=== PATIENT | male | born 1960 | race Caucasian/White ===

== ENCOUNTER 2019-01-16 10:04 | Emergency (ER) | payer OTHER, SELFPAY ==
[2019-01-16 10:08] VITALS: BP 128/87; PULSE 53; RESP 15; TEMP 36.7; O2SAT 99
--- NOTE | 2019-01-16 10:31 | ED.GENADUL_ITS ---
Discharge Plan Disposition Patient Disposition: HOME Condition: Stable Discharge Details Chief Complaint: Orthopedic Clinical Impression: Biceps tendon tear Primary Care Provider: None,None ED Provider: Martínez Roche Home Meds and New Rx's Prescriptions: Continued esomeprazole magnesium [Nexium] 40 MG capsule,delayed release(DR/EC) 40 mg PO DAILY@0730 Qty: 30 RF: 0 acetaminophen [Tylenol] 325 MG tablet 650 mg PO Q6H PRN PRNQty: 30 RF: 0 Discharge Instructions Instructions: Tendon Rupture (ED) Additional Instructions: Please continue to use [id number] pain medication, apply ice, and keep splint on. Call orthopedic office tomorrow for arrangement of follow-up appointment as directed by their office. Return to the emergency department for any new or worsening symptoms or further concerns you may have. Stand Alone Forms: Work Release Referrals: Reynaldo Cedeño MD [ [facility] STAFF PHYSICIAN] - 1 week (Call the office for arrangement of follow-up appointment) Discharge Data Discharge Date/Time-TO BE ENTERED AT DEPARTURE: 01/16/19 12:06 Medical Decision Making Patient presenting to the emergency department for chief complaint of right upper arm pain. Patient states that this happened this morning while attempting to lift a mattress into the back of the vehicle and he felt a pop and pain to his right elbow. Patient is right arm dominant. Physical exam shows significant weakness with supination of the right upper forearm. Plan to do radiological imaging Review of radiological imaging and speaking with radiologist shows no acute fracture or findings. Concern for distal tear of the biceps tendon. I do not feel that this is a complete tear as the bicep otherwise appears normal beyond the significant weakness noted. Patient placed up on orthopedic list for follow-up. Patient stated that acetaminophen was appropriate for controlling his pain and patient placed in sling. After discussion of diagnosis and plan of care patient has no further needs, questions, or concerns and states clear understanding to return to the emergency department for any worsening symptoms. HPI General Mode of arrival: ambulatory . Date/Time Provider Initiated Documentation: 01/16/19 10:17 . Limitations to Documentation: no limitations . Information obtained by: patient . History of Present Illness 58 year old M presents to the emergency department with the chief complaint of right elbow injury, described as moderate, and is localized to the right and upper extremity. Patient started experiencing this hour(s) (1) and it has been constant. Movement worsens symptoms . Patient notes no other symptoms.. Patient did receive the following treatments prior to arrival, none Related Data Home Medications Medication Instructions Recorded Confirmed acetaminophen [Tylenol] 650 mg PO Q6H PRN PRN #30 tab 05/05/18 01/16/19 esomeprazole magnesium [Nexium] 40 mg PO DAILY@0730 #30 capcr 05/29/18 01/16/19 Previous Rx's Medication Instructions Recorded acetaminophen [Tylenol] 650 mg PO Q6H PRN PRN #30 tab 05/05/18 esomeprazole magnesium [Nexium] 40 mg PO DAILY@0730 #30 capcr 05/29/18 Allergies Allergy/AdvReac Type Severity Reaction Status Date / Time venom-honey bee Allergy Severe Anaphylaxsi Unverified 01/16/19 10:13 [bee venom (honey bee)] s General Stated Complaint: Orthopedic CANDICE: 4 Review of Systems Cardiovascular Denies syncope Musculoskeletal Reports as per HPI, Reports myalgias, Reports arthralgias, Denies numbness and Denies tingling Integumentary/Breasts Denies rash, Denies sores and Denies wounds Neurologic Denies syncope, Denies numbness and Denies tingling PFSH Medical History Garza's esophagus determined by biopsy Surgical History Appendectomy (05/04/18) Colonoscopy - IV Sedation (12/24/13) EGD - IV Sedation (12/24/13) EGD - MAC (05/29/18) Family History Maternal Aunt Colon cancer Social History household members: spouse housing: house Smoking and Tabacco status: Never alcohol intake: current alcohol intake frequency: a few times a month substance use type: does not use Exam Const General: cooperative and no acute distress Orientation: alert, awake and oriented x3 Resp Effort & Inspection: normal respiratory effort and able to speak in complete sentences Cardio Rate: regular rate Rhythm: regular rhythm Extrem Right upper extremity: shoulder/upper arm Details: normal to inspection and axillary nerve sensory function normal; no tenderness and no deformity, elbow/forearm Details: abnormal ROM Details: pain with active ROM during Details: with supination and with range as follows (Significant weakness with supination), wrist Details: normal to inspection, normal ROM and radial pulse present and hand Details: normal to inspection, neuromotor exam normal, neurosensory exam normal, tendon exam normal and normal ROM of fingers Course Vital Signs Temperature 36.7 C 01/16/19 10:08 Pulse 53 L 01/16/19 10:08 Respiratory Rate 15 01/16/19 10:08 Blood Pressure 128/87 01/16/19 10:08 Pulse Oximetry 99 01/16/19 10:08 Temperature 36.7 C 01/16/19 10:08 Temperature Source Tympanic 01/16/19 10:08 Pulse 53 L 01/16/19 10:08 Respiratory Rate 15 01/16/19 10:08 Respiratory Effort Non-Labored 01/16/19 10:12 Blood Pressure 128/87 01/16/19 10:08 Blood Pressure Position Sitting 01/16/19 10:08 Pulse Oximetry 99 01/16/19 10:08 Pain Level 5 01/16/19 10:15
--- NOTE | 2019-01-16 10:50 | DI.RAD_ITS ---
SYMPTOMS/DIAGNOSIS: PAIN RIGHT ELBOW: No fracture or joint effusion is seen. There are no significant degenerative changes. IMPRESSION: Negative right elbow.
== END 2019-01-16 12:06 | disposition home or self-care (01) ==
PROVIDERS: Emergency Provider Nurse Practitioner Family
DX: S46.111A Strain of muscle, fascia and tendon of long head of biceps, right arm, initial encounter (principal); X50.9XXA Other and unspecified overexertion or strenuous movements or postures, initial encounter
CPT/HCPCS: 99283; 73080; 99282; L3650

== ENCOUNTER 2019-02-06 01:12 | Outpatient (CLI) | payer OTHER, SELFPAY ==
--- NOTE | 2019-02-06 09:55 | DI.MRI_ITS ---
SYMPTOMS/DIAGNOSIS: RT RUPTURED DISTAL BICEPS RIGHT ELBOW MRI: MRI examination of the elbow was performed in a patient with clinically apparent distal biceps tendon rupture. No bony signal abnormality seen. There is an apparent subtotal tear of the biceps tendon at the radial tuberosity attachment without significant retraction and a few visible intact fibers are present. No other tendinous or ligamentous injury identified. CONCLUSION: Findings consistent with subtotal non or minimally retracted rupture of the distal biceps tendon as clinically suspected.
== END 2019-02-06 01:32 ==
PROVIDERS: Visit Provider Orthopaedic Surgery
DX: S46.211A Strain of muscle, fascia and tendon of other parts of biceps, right arm, initial encounter (principal)
CPT/HCPCS: 73221

== ENCOUNTER 2019-02-19 07:27 | Day surgery (SDC) | payer OTHER, SELFPAY ==
[2019-02-19] VITALS (7 sets, daily range): BP systolic 134–147; BP diastolic 86–103; PULSE 74–88; RESP 12–18; TEMP 36.3–36.9; O2SAT 95–100
[2019-02-19] MEDS: Lactated Ringers 1,000 ML 80 ML IV (08:10)
[2019-02-19] MEDS: ceFAZolin 2 GM/50 ML BAG IVPB (10:06)
--- NOTE | 2019-02-19 11:03 | W.PM.DSUDISC ---
Discharge Plan Disposition Patient Disposition: HOME Condition: Good Discharge Details Reason For Visit: RUPTURE DISTAL BICEPS (R) Attending Provider: Anmol Morales Primary Care Provider: None,None Home Meds and New Rx's Prescriptions: New ibuprofen 800 mg tablet 800 mg PO TID Qty: 30 RF: 0 hydrocodone-acetaminophen 5-325 mg tablet 1 tab PO Q6H PRN (Reason: pain) Qty: 14 RF: 0 Continued esomeprazole magnesium [Nexium] 40 MG capsule,delayed release(DR/EC) 40 mg PO DAILY@0730 Qty: 30 RF: 0 acetaminophen [Tylenol] 325 MG tablet 650 mg PO Q6H PRN PRNQty: 30 RF: 0 Discharge Instructions Additional Instructions: Sling for comfort. Take R arm out of sling and move elbow as often and as much as your discomfort allows. Discontinue sling when you can move R elbow with minimal pain. Don't attempt to lift anything more than 20 pounds with R arm. May remove dressings, shower, and get incision wet after 72 hours. Leave incision uncovered when it is dry and sealed. Follow up with in 2 weeks. Take ibuprofen 3 times/day for 10 days to decrease inflammation and swelling. Take hydrocodone if needed, for breakthru pain. Referrals: Anmol Morales MD [ [facility] STAFF PHYSICIAN] - (f/u in 2 weeks.) Equipment/Supplies: Sling Activity:: Activity as Tolerated Remove Dressings/Wound Care:: 72 hours Shower/Bathe:: 72 hours Diet:: As Tolerated Discharge Orders Discharge Orders: Discharge Order (Routine); Ordered 02/19/19 Ordered By: Anmol Morales DS: Diagnosis Discharge Diagnosis (1) Rupture of right distal biceps tendon: Status: Acute
[2019-02-19] MEDS: oxyCODONE-CR 10 MG TABCR PO (12:34)
--- NOTE | 2019-02-20 16:30 | ROE_ITS ---
DATE OF PROCEDURE: February 19, 2019 PREOPERATIVE DIAGNOSIS: Possible rupture distal biceps, right. POSTOPERATIVE DIAGNOSIS: Partial tear distal biceps, right. PROCEDURE: Exploration of distal biceps tendon, right. ANESTHESIA: General. SURGEON: Anmol Morales M.D. 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 He was thought to have a distal biceps rupture. An MRI scan was obtained and was interpreted as showing in fact a distal biceps rupture. The clinical examination, however, d id not quite fit the diagnosis of a complete rupture. Exploration of the biceps tendon was recommend ed, with repair anticipated if there was a complete tear of the distal biceps tendon. The risks and complications of the procedure were explained to the patient in detail preoperatively, as well as a p rolonged recovery time. PROCEDURE: The patient was taken to the Operating Room on 02/19/19. He was placed supine on the opera ting table and a general anesthetic was administered. A proximal tourniquet was applied to the right upper arm and the right upper extremity was prepped from fingers to tourniquet and draped free in th e usual sterile fashion. Under proximal tourniquet control, I first made a transverse incision in the antecubital fossa about three inches in length. Then I carried it down to the fascia; cauterized and tied off superficial ve ins, and I was able to expose the biceps tendon. It was in fact in place and was not retracted. I t hen extended the incision distally and on the ulnar side of the forearm I put a vessel loop around th e tendon and traced the tendon down to insertion on the radial tuberosity. There was evidence of pal e hemorrhage into the tenosynovium distally, but the biceps tendon was still attached to the greater tuberosity and was not pulled off. I was able to tension and loosen the tendon with pronation and garner pination. I did not feel that any repair was necessary. The wound was irrigated with saline solutio n and the wound margins were infiltrated with 0.5% Marcaine with an epinephrine solution. The skin a nd subcu were approximated with interrupted #4-0 Nylon sutures. Sterile dressings were applied. The patient's anesthesia was reversed without complication and he was discharged to Recovery in good con dition. The patient was discharged home from the Day Surgery Unit when fully recovered from his general anest hesia. He was given instructions to use the sling for comfort. He may take his right arm out of the sling as much and as often as discomfort allows to move his elbow. He may remove his dressings, kelsey wer and get his incision wet after 72 hours. I encouraged him to use his right arm as much as discom fort allows, but he should limit any lifting with the right arm to twenty pounds. He was given a pre scription for inflammation of ibuprofen 800 mg p.o. t.i.d. for ten days and a prescription for pain o f Hydrocodone with APAP 5/325 one tablet every 6 hours, as needed. He will follow-up with me in two weeks.
== END 2019-02-19 13:22 | disposition home or self-care (01) ==
PROVIDERS: Visit Provider Orthopaedic Surgery
PROC: (CPT 24341; principal; 2019-02-19 09:00)
DX: S46.211A Strain of muscle, fascia and tendon of other parts of biceps, right arm, initial encounter (principal); X58.XXXA Exposure to other specified factors, initial encounter; Y99.0 Civilian activity done for income or pay
CPT/HCPCS: 24341; J0690; J1100; J1885; J2250; J2405; J3010; L3650

== ENCOUNTER 2019-02-20 19:57 | Observation (INO) | payer OTHER, SELFPAY ==
[2019-02-20 20:01] VITALS: BP 125/82; PULSE 128; RESP 18; TEMP 36.6; O2SAT 94
--- NOTE | 2019-02-20 20:13 | NUR.NOTE ---
patient reported that right hand less has sensation than left, right radial pulse is not as strong as left radial pulse, existing right arm mary wrap dc'd and sesnaiton is better and pulse is stronger Nursing Note:
[2019-02-20 20:26] VITALS: TEMP 37.7
--- NOTE | 2019-02-20 20:37 | W.ED.GENAD ---
Discharge Plan Disposition Patient Disposition: [facility] INPATIENT Condition: Good Discharge Details Chief Complaint: GenMedical Admit Date/Time: 02/20/19 21:16 Admit Provider: Reynaldo Cedeño Attending Provider: Reynaldo Cedeño Primary Care Provider: Verona Noel ED Provider: Omar Craven Hospital Course Hospital Course: Patient was admitted to the hospital on 02/20/2019 for possible sepsis. Blood cultures were obtained and he was started on empiric IV antibiotics. Swelling in his right hand resolved overnight by simply having the Edwin bandage off. The wound in his right antecubital fossa from exploration of his biceps tendon was totally benign and without drainage. He was complaining of some diarrhea prior to admission. I thought he might have contracted C. difficile from his preop antibiotics on 02/19/2019. Test for C. difficile were negative. He felt better every day. He has no pain moving his right elbow. He was afebrile during the daytime on 02/21/2019. He had a fever spike at night to 38 degrees on 410. On 411 he was afebrile throughout the day. He was eating and drinking well. His surgical incision in the antecubital fossa on the right was totally benign. Blood cultures showed no growth after 48 hours. I felt he had completed his acute care goals. I thought he probably had a viral illness that caused his fever and chills. I thought the antibiotics could be stopped that he could be sent home. Discharge Instructions Instructions: Fever in Adults (GEN) Additional Instructions: May shower and get the codie wet on his right elbow. He should cover the codie with a light gauze dressing so that they do not catch on his clothing. May use his right arm as much as discomfort allows. Can take ibuprofen for any discomfort. Follow-up had originally scheduled appointment on 03/03/2019. Forms: Nursing Discharge Form Referrals: Anmol Morales MD [ [facility] STAFF PHYSICIAN] - 03/06/19 9:45 am (Has appt on 03/03/19) Discharge Data Discharge Date/Time-TO BE ENTERED AT DEPARTURE: 02/20/19 22:07 Medical Decision Making 20:45 --58-year-old male one day status post exploration of right distal biceps tendon here with fever, chills, headache, loose stool since early this afternoon. Patient is febrile and tachycardic. Right upper extremity with erythema and warmth. Concern for cellulitis. Will initiate fluid resuscitation with 1 L of normal saline. To check CBC, lactate and blood culture. -- Patient meets sepsis criteria. Plan to initiate broad spec empiric antibiotic coverage. Plan to admit. -- I spoke with Dr. Cedeño who will admit the patient. HPI General Mode of arrival: ambulatory. Date/Time Provider Initiated Documentation: 02/20/19 20:29. Limitations to Documentation: no limitations. Information obtained by: patient. HPI Narrative: 58-year-old male presents 1 day status post right distal bicep tendon exploration with chief complaint of fever. Patient notes he is felt chills today. He has associated loose stool and headache today. No neck stiffness or pain. Symptoms started around 3 PM today. Symptoms have persisted. He took ibuprofen 800 mg around 7:00 which has helped minimally. No associated cough. No dysuria. No rash. Related Data Home Medications Medication Instructions Recorded Confirmed acetaminophen [Tylenol] 650 mg PO Q6H PRN PRN #30 tab 05/05/18 02/20/19 esomeprazole magnesium [Nexium] 40 mg PO DAILY@0730 #30 capcr 05/29/18 02/20/19 hydrocodone-acetaminophen 1 tab PO Q6H PRN #14 tab 02/19/19 02/20/19 ibuprofen 800 mg PO TID #30 tab 02/19/19 02/20/19 Previous Rx's Medication Instructions Recorded acetaminophen [Tylenol] 650 mg PO Q6H PRN PRN #30 tab 05/05/18 esomeprazole magnesium [Nexium] 40 mg PO DAILY@0730 #30 capcr 05/29/18 hydrocodone-acetaminophen 1 tab PO Q6H PRN #14 tab 02/19/19 ibuprofen 800 mg PO TID #30 tab 02/19/19 Allergies Allergy/AdvReac Type Severity Reaction Status Date / Time venom-honey bee Allergy Severe Anaphylaxsi Unverified 02/20/19 20:05 [bee venom (honey bee)] s General Stated Complaint: GenMedical CANDICE: 3 Review of Systems Review of Systems All systems reviewed & are unremarkable except as noted in HPI and below PFSH Medical History Garza's esophagus determined by biopsy Surgical History Appendectomy (05/04/18) Colonoscopy - IV Sedation (12/24/13) EGD - IV Sedation (12/24/13) EGD - MAC (05/29/18) Family History Maternal Aunt Colon cancer Social History Smoking/Tobacco Use Status: Never Alcohol Intake: current Alcohol Intake frequency: a few times a week Alcohol type: beer Drug use: Never Substance use type: does not use Details: alcohol: t-1, couple beers Household members: spouse Housing: house Do you feel safe at home: Yes Do you feel safe in your relationship?: Yes Exam Const General: cooperative and no acute distress HENMT Mouth: moist mucous membranes Eyes Conjunctivae: normal conjunctivae Sclera: normal sclerae Neck Neck: no meningeal signs and supple Resp Auscultation: clear to auscultation bilaterally, no rales, no rhonchi and no wheezes Cardio Jugular venous pressure: no JVD Rate: tachycardic Rhythm: regular rhythm GI Palpation: soft, not firm, no guarding, no masses, not rigid and nontender Skin Rashes: rashes noted (erthema and warmth right upper arm mid humerus to elbow) Neuro General: alert, awake, oriented x3 and tone normal Extrem Right upper extremity: shoulder/upper arm (codie intact with no discharge from surgical wound; erythema noted) Details: tenderness and swelling (distal upper arm) and elbow/forearm Details: swelling, warmth and other (compartments soft); no crepitus Psych Appearance: grossly normal Mental Status: mental status grossly normal Course Vital Signs Temperature 36.6 C 02/20/19 20:01 Pulse 128 H 02/20/19 20:01 Respiratory Rate 18 02/20/19 20:01 Blood Pressure 125/82 02/20/19 20:01 Pulse Oximetry 94 L 02/20/19 20:01 Temperature 37.7 C H 02/20/19 20:26 Temperature Source Oral 02/20/19 20:26 Pulse 128 H 04/09/19 20:01 Respiratory Rate 18 02/20/19 20:01 Blood Pressure 125/82 02/20/19 20:01 Pulse Oximetry 94 L 02/20/19 20:01 Oxygen Delivery Method Room Air 02/20/19 20:01 Oxygen Flow Rate 0 02/20/19 20:01 Pain Level 4 02/20/19 20:01
--- NOTE | 2019-02-20 20:49 | ED.GENADUL_ITS ---
Discharge Plan Disposition Patient Disposition: [facility] INPATIENT Condition: Good Discharge Details Chief Complaint: GenMedical Admit Date/Time: 02/20/19 21:16 Admit Provider: Reynaldo Cedeño Attending Provider: Reynaldo Cedeño Primary Care Provider: Verona Noel ED Provider: Omar Craven Hospital Course Hospital Course: Patient was admitted to the hospital on 02/20/2019 for possible sepsis. Blood cultures were obtained and he was started on empiric IV antibiotics. Swelling in his right hand resolved overnight by simply having the Edwin bandage off. The wound in his right antecubital fossa from exploration of his biceps tendon was totally benign and without drainage. He was complaining of some diarrhea prior to admission. I thought he might have contracted C. difficile from his preop antibiotics on 02/19/2019. Test for C. difficile were negative. He felt better every day. He has no pain moving his right elbow. He was afebrile during the daytime on 02/21/2019. He had a fever spike at night to 38 degrees on 410. On 411 he was afebrile throughout the day. He was eating and drinking well. His surgical incision in the antecubital fossa on the right was totally benign. Blood cultures showed no growth after 48 hours. I felt he had completed his acute care goals. I thought he probably had a viral illness that caused his fever and chills. I thought the antibiotics could be stopped that he could be sent home. Discharge Instructions Instructions: Fever in Adults (GEN) Additional Instructions: May shower and get the codie wet on his right elbow. He should cover the codie with a light gauze dressing so that they do not catch on his clothing. May use his right arm as much as discomfort allows. Can take ibuprofen for any discomfort. Follow-up had originally scheduled appointment on 03/03/2019. Forms: Nursing Discharge Form Referrals: Anmol Morales MD [ [facility] STAFF PHYSICIAN] - 03/06/19 9:45 am (Has appt on 03/03/19) Discharge Data Discharge Date/Time-TO BE ENTERED AT DEPARTURE: 02/20/19 22:07 Medical Decision Making 20:45 --58-year-old male one day status post exploration of right distal biceps tendon here with fever, chills, headache, loose stool since early this afternoon. Patient is febrile and tachycardic. Right upper extremity with erythema and warmth. Concern for cellulitis. Will initiate fluid resuscitation with 1 L of normal saline. To check CBC, lactate and blood culture. -- Patient meets sepsis criteria. Plan to initiate broad spec empiric antibiotic coverage. Plan to admit. -- I spoke with Dr. Cedeño who will admit the patient. HPI General Mode of arrival: ambulatory . Date/Time Provider Initiated Documentation: 02/20/19 20:29 . Limitations to Documentation: no limitations . Information obtained by: patient . HPI Narrative: 58-year-old male presents 1 day status post right distal bicep tendon exploration with chief complaint of fever. Patient notes he is felt chills today. He has associated loose stool and headache today. No neck stiffness or pain. Symptoms started around 3 PM today. Symptoms have persisted. He took ibuprofen 800 mg around 7:00 which has helped minimally. No associated cough. No dysuria. No rash. Related Data Home Medications Medication Instructions Recorded Confirmed acetaminophen [Tylenol] 650 mg PO Q6H PRN PRN #30 tab 05/05/18 02/20/19 esomeprazole magnesium [Nexium] 40 mg PO DAILY@0730 #30 capcr 05/29/18 02/20/19 hydrocodone-acetaminophen 1 tab PO Q6H PRN #14 tab 02/19/19 02/20/19 ibuprofen 800 mg PO TID #30 tab 02/19/19 02/20/19 Previous Rx's Medication Instructions Recorded acetaminophen [Tylenol] 650 mg PO Q6H PRN PRN #30 tab 05/05/18 esomeprazole magnesium [Nexium] 40 mg PO DAILY@0730 #30 capcr 05/29/18 hydrocodone-acetaminophen 1 tab PO Q6H PRN #14 tab 02/19/19 ibuprofen 800 mg PO TID #30 tab 02/19/19 Allergies Allergy/AdvReac Type Severity Reaction Status Date / Time venom-honey bee Allergy Severe Anaphylaxsi Unverified 02/20/19 20:05 [bee venom (honey bee)] s General Stated Complaint: GenMedical CANDICE: 3 Review of Systems Review of Systems All systems reviewed & are unremarkable except as noted in HPI and below PFSH Medical History Garza's esophagus determined by biopsy Surgical History Appendectomy (05/04/18) Colonoscopy - IV Sedation (12/24/13) EGD - IV Sedation (12/24/13) EGD - MAC (05/29/18) Family History Maternal Aunt Colon cancer Social History Smoking/Tobacco Use Status: Never Alcohol Intake: current Alcohol Intake frequency: a few times a week Alcohol type: beer Drug use: Never Substance use type: does not use Details: alcohol: t-1, couple beers Household members: spouse Housing: house Do you feel safe at home: Yes Do you feel safe in your relationship?: Yes Exam Const General: cooperative and no acute distress HENMT Mouth: moist mucous membranes Eyes Conjunctivae: normal conjunctivae Sclera: normal sclerae Neck Neck: no meningeal signs and supple Resp Auscultation: clear to auscultation bilaterally, no rales, no rhonchi and no wheezes Cardio Jugular venous pressure: no JVD Rate: tachycardic Rhythm: regular rhythm GI Palpation: soft, not firm, no guarding, no masses, not rigid and nontender Skin Rashes: rashes noted (erthema and warmth right upper arm mid humerus to elbow) Neuro General: alert, awake, oriented x3 and tone normal Extrem Right upper extremity: shoulder/upper arm (codie intact with no discharge from surgical wound; erythema noted) Details: tenderness and swelling (distal upper arm) and elbow/forearm Details: swelling, warmth and other (compartments soft); no crepitus Psych Appearance: grossly normal Mental Status: mental status grossly normal Course Vital Signs Temperature 36.6 C 02/20/19 20:01 Pulse 128 H 02/20/19 20:01 Respiratory Rate 18 02/20/19 20:01 Blood Pressure 125/82 02/20/19 20:01 Pulse Oximetry 94 L 02/20/19 20:01 Temperature 37.7 C H 02/20/19 20:26 Temperature Source Oral 02/20/19 20:26 Pulse 128 H 04/09/19 20:01 Respiratory Rate 18 02/20/19 20:01 Blood Pressure 125/82 02/20/19 20:01 Pulse Oximetry 94 L 02/20/19 20:01 Oxygen Delivery Method Room Air 02/20/19 20:01 Oxygen Flow Rate 0 02/20/19 20:01 Pain Level 4 02/20/19 20:01
[2019-02-20 20:52] LABS: Abs Immature Grans 0.03 k/cumm (0.0-0.09); Absolute Basophil Count 0.02 k/cumm (0.0-0.2); Absolute Eosinophil Count 0.03 k/cumm (0.0-0.7); Absolute Monocyte Count 0.64 k/cumm (0.11-0.7); Absolute Neutrophil Count 6.94 k/cumm (1.2-6.7); Basophils % 0.2; Eosinophils % 0.4; HCT 43.9 % (40.0-50.0); HGB 15.3 g/dL (13.5-17.5); Immature Grans % 0.4; Mean Corp. HGB Concentration 34.9 g/dL (32.0-36.0); Mean Corpuscular Hemoglobin 31.2 pg (27.0-33.0); Mean Corpuscular Volume 89.6 fL (80-95); Mean Platelet Volume 10.3 fL (8.0-11.0); Monocytes % 7.9; Neutrophils % 86.1; Platelet Count 240 x1000/uL (130-400); White Blood Cell Count 8.06 k/cumm (4.4-10.8)
[2019-02-20 21:11] LABS: ALT 43 U/L (12-78); AST 21 U/L (15-37); Albumin 3.4 g/dL (3.4-5.0); Alkaline Phosphatase 70 U/L (46-116); BUN 13 mg/dL (7-18); Bilirubin, Total 1.7 mg/dL (0.2-1.0); CREATININE 1.11 mg/dL (0.70-1.30); Calcium 8.3 mg/dL (8.5-10.1); Chloride 100 mmol/L (98-107); Glucose 150 mg/dL (70-100); Potassium 3.3 mmol/L (3.5-5.1); Sodium 135 mmol/L (136-145); Total Protein 6.9 g/dL (6.4-8.2)
[2019-02-20] MEDS: PIPERACILLIN/TAZO 4.5 GM in Normal Saline 100 ML IVPB (21:19)
[2019-02-20 21:32] VITALS: BP 134/76; PULSE 95; RESP 18; TEMP 37.2; O2SAT 97
--- NOTE | 2019-02-20 21:39 | DI.RAD_ITS ---
SYMPTOM/DIAGNOSIS: RECENT ELBOW SURGERY WITH PAIN RIGHT ELBOW: Two views. No bone or joint abnormality is identified. There are surgical clips in the anterior soft tissues. No radiopaque foreign bodies are present. IMPRESSION: No acute abnormality.
[2019-02-20 21:53] LABS: C-Reactive Protein 5.05 mg/dL (0.0-0.3)
--- NOTE | 2019-02-20 22:00 | DI.VRAD_ITS ---
EXAM: XR Right Elbow, 1 or 2 Views EXAM DATE/TIME: 02/20/2019 9:14 PM CLINICAL HISTORY: 58 years old, male; Signs and symptoms; Other: Recent elbow surgery with pain; Prior surgery; Surgery date: 3-7 days post-operative; Surgery type: RT elbow surgery; Additional info: Recent elbow surgery with pain, develop fever and pain TECHNIQUE: Imaging protocol: XR Right elbow 1 or 2 views. COMPARISON: CR XR elbow RT complete 01/16/2019 10:41 AM FINDINGS: Bones/joints: Joint spaces are maintained. No appreciable elbow joint effusion. No acute fracture or dislocation. Soft tissues: Postsurgical changes of the ventral elbow. No subcutaneous emphysema. No radiopaque foreign body. IMPRESSION: No obvious acute findings. Dictated and Authenticated by: Wellington Rubi MD. Ordering:EDUARDA Jacobs MD
[2019-02-20] MEDS: VANCOMYCIN 1,500 MG in Normal Saline 250 ML 166.6666 MG IVPB (22:03)
--- NOTE | 2019-02-20 22:04 | NUR.NOTE ---
MD Cedeño examined patient. Nursing Note:
[2019-02-20 22:22] VITALS: BP 117/82; PULSE 98; RESP 16; TEMP 37.7; O2SAT 98
--- NOTE | 2019-02-20 22:55 | OCONE_ITS ---
Date of service: 02/20/19 Time of Service: 21:51 History of Present Illness Chief Complaint: Fever and Chills Narrative: Valdez is a 58-year-old who recently had surgery to his right arm. This is done yesterday by Dr. Morales. He did fine yesterday evening and then today reported shaking chills and a fever of 102 degrees. Given these findings he came into the emergency department. He denies any chest pain or shortness of breath. He denies any chest heaviness. He has had some mild swelling distal to the wrap around the elbow. He has been able to move the elbow although causes some discomfort. No numbness or tingling. No exquisite pain not controlled wi th ibuprofen and Tylenol. Consult Reason Fever and Chills Assessment and Plan (1) Fever and chills: Current visit: Yes Status: Acute Valdez is a 58-year-old who had surgery to the right arm yesterday. He developed significant fever, greater than 102 degrees, earlier today along with chills. He has no major symptoms except for the fever and chills. On admission to the emergency department he had tachycardia of 122 bpm. His lactate is elevated at 2 and his C-reactive protein is elevated at 5. His examination however is really benign. The initial presentation is concerning for infection but it would be highly unlikely that the surgical wound become infected within 24 hours. The exam of the wound is benign. Other possible differential items include deep vein thrombosis or thrombophlebitis or another etiology of infection although there is little indication based on exam and history. I offered admission for can. I think it makes sense to start some antibiotics just to be safe and follow him conservatively. Blood cultures were obtained. I will admit him for observation and start Vanco and Zosyn. 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 He is in no acute distress. He is alert and oriented x3. His eyes are anicteric. His head is normocephalic. He has normal neck and head motions. Evaluation of the right arm shows a well approximated incision over the antebrachial space. There is some very mild rubor in this area but no eligio erythema. The forearm and elbow is soft. There is some mild swelling when compared to the contralateral side but no significant edema. No emphysema subcutaneously. No significant pain to palpation throughout. Palpable radial pulse. The hand is warm well perfused. Sensation intact light touch over the median, radial, ulnar nerve. Gentle elbow range of motion is well-tolerated without significant limitation. Results Last Vital Signs Temp 37.7 C H 02/20/19 22:22 Pulse 98 H 02/20/19 22:22 Resp 16 02/20/19 22:22 BP 177/82 H 02/20/19 22:22 Pulse Ox 98 02/20/19 22:22 Labs : 02/20/19 20:44 02/20/19 20:44 Laboratory Results - last 24 hr 02/20/19 02/20/19 02/20/19 20:37 20:44 20:44 WBC RBC Hgb Hct MCV MCH MCHC RDW Plt Count MPV Immature Gran % Neutrophils % Lymphocytes % Monocytes % Eosinophils % Basophils % Absolute Neutrophils Absolute Lymphocytes Absolute Monocytes Absolute Eosinophils Absolute Basophils Sodium 135 L Potassium 3.3 L Chloride 100 Carbon Dioxide 24.0 Anion Gap 11.0 BUN 13 Creatinine 1.11 Estimated GFR/1.73 m2 >= 60.00 Glucose 150 H Lactate 2.0 H Calcium 8.3 L Total Bilirubin 1.7 H AST 21 ALT 43 Alkaline Phosphatase 70 C-Reactive Protein 5.05 H Total Protein 6.9 Albumin 3.4 02/20/19 20:44 WBC 8.06 RBC 4.90 Hgb 15.3 Hct 43.9 MCV 89.6 MCH 31.2 MCHC 34.9 RDW 13.0 Plt Count 240 MPV 10.3 Immature Gran % 0.4 Neutrophils % 86.1 Lymphocytes % 5.0 Monocytes % 7.9 Eosinophils % 0.4 Basophils % 0.2 Absolute Neutrophils 6.94 H Absolute Lymphocytes 0.40 L Absolute Monocytes 0.64 Absolute Eosinophils 0.03 Absolute Basophils 0.02 Sodium Potassium Chloride Carbon Dioxide Anion Gap BUN Creatinine Estimated GFR/1.73 m2 Glucose Lactate Calcium Total Bilirubin AST ALT Alkaline Phosphatase C-Reactive Protein Total Protein Albumin
[2019-02-20] MEDS: Potassium Chloride 10 MEQ TABCR 20 MEQ PO (23:05)
[2019-02-21] VITALS (9 sets, daily range): BP systolic 108–128; BP diastolic 63–79; PULSE 84–96; RESP 16–18; TEMP 36.6–38.2; O2SAT 94–98
[2019-02-21] MEDS: Acetaminophen 325 MG TAB 650 MG PO (00:24)
[2019-02-21] MEDS: Ibuprofen 800 MG TAB PO (03:38)
[2019-02-21] MEDS: Normal Saline Flush 10 ML SYR IVP ×5 (03:39→21:35)
[2019-02-21] MEDS: PIPERACILLIN/TAZO 3.375 GM in Normal Saline 50 ML IVPB ×4 (03:39→21:34)
[2019-02-21] MEDS: Esomeprazole 40 MG CAPCR PO (07:43)
--- NOTE | 2019-02-21 08:10 | PDOC.CMIN ---
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 Past Surgical History: Appendectomy. Colonoscopy - IV Sedation. EGD - IV Sedation. EGD - MAC PREVIOUS FUNCTIONAL STATUS/SOCIAL/FAMILY SUPPORTS:: Lamont lives at home with his and one child. He has 2 other adult children who are out of the home. 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 CURRENT FUNCTIONAL STATUS:: Lamont was sitting up in bed, engaged and smiling during CM visit. He states he is feeling much better than when he came in last night. His hand was swollen when he was admitted but states it is less so now and he is afebrile. His pain has also decreased. Has patient been provided with information about the portal?: Yes Did the patient sign up for the portal?: No CODE STATUS:: Full Code INSURANCE COVERAGE / FINANCIAL ISSUES:: [employer] CURRENT HOME/COMMUNITY SERVICES/EQUIPMENT:: Valdez is not currently receiving any services at home. PRIMARY CARE PHYSICIAN:: Verona Noel PATIENT/FAMILY EDUCATION NEEDS:: Discharge education, limitations, follow up plan of care and Ask Me Three TRANSPORTATION:: Via private automobile with family at time of discharge. PLAN:: Lamont is receiving IV antibiotics and pain medicine as needed. Anticipate that he will return to home with no services, although he may need outpatient IV antibiotics.
[2019-02-21] MEDS: VANCOMYCIN 1,000 MG in Normal Saline 250 ML 166.6666 MG IVPB ×2 (09:52→18:29)
--- NOTE | 2019-02-21 15:23 | PHARADMIT ---
Admission Pharmacy Clinical Review TACHYCARDIA and FEVER, Post-Op Right arm surgery Code Status Full Code Current Weight Wgt- 84.8 kg Renally Cleared and Narrow Therapeutic Index Meds CrCl~ 77 ML/min Meds-OK QTc Value / Action Taken NA BP Control, Fever BP-125/72 Tmac- 37.7C Electrolytes reviewed Na- 135 K+3.3 DVT Prophylaxis none Opiate Usage / Scheduled Bowel Regimen Ordered Yes No Plt/SCr for Heparin / Enoxaparin Plts-240 SCr-1.11 INR for Warfarin na H/H stable, WBC/Bands H&H- 15.3/43.9 WBC- 8.06 Antibiotic appropriateness Vancomycin, Zosyn Cultures and Sensitivities C-diff-Neg, Blood-pending Surgical ABX d/c within 24 hr NA DM control / Insulin Dosing BG- 150 Heart Failure (Check EF%) (TAM's, B-Block, Diuretics) none IV to PO Switch No Home Meds Reviewed Yes Home Meds Not Ordered Ordered Comments
--- NOTE | 2019-02-21 16:35 | PGE_ITS ---
Date of Service Date of service: 02/21/19 Time of Service: 16:25 Assessment and Plan (1) Fever and chills: Current visit: Yes Status: Acute Assessment: So far there is nothing to suggest a bacterial infection at this time. Antibiotic-induced C. difficile has been ruled out. His right upper extremity and his antecubital wound are benign. This may all turner and former automatic to be a viral illness. For now a committed to continue with antibiotics until the blood cultures have been reported negative. Plan: Continue IV and antibiotics pending blood culture results. Continue to monitor temperature. I will not repeat labs unless his condition worsens. Subjective Interval history since last seen: He feels much better today. He has had no chills today since I saw him at 8:30 AM. He has absolutely no pain in his right upper extremity. Swelling in his right hand resolved overnight. Exam Narrative Exam Narrative: He has no swelling in his right hand. The incision in his antecubital fossa is clean. There is no drainage. There is no significant surrounding erythema. There is no swelling anywhere in his right upper extremity forearm or arm. He demonstrates full active range of motion of the right elbow without pain. He has been afebrile since 6 AM but his temperature recorded an hour ago was 38 centigrade. Screen for C. difficile was negative. There is nothing growing from his blood cultures yet. His white count last night was 8060. CRP was elevated at 5.05 mg/dL. Objective Objective Clinical Data: Abnormal lab results 02/20/19 02/20/19 02/20/19 Range/Units 20:37 20:44 20:44 Absolute Neutrophils (1.2-6.7) k/cumm Absolute Lymphocytes (1.2-3.4) k/cumm Sodium 135 L (136-145) mmol/L Potassium 3.3 L (3.5-5.1) mmol/L Glucose 150 H (70-100) mg/dL Lactate 2.0 H (0.6-1.4) mmol/L Calcium 8.3 L (8.5-10.1) mg/dL Total Bilirubin 1.7 H (0.2-1.0) mg/dL C-Reactive Protein 5.05 H (0.0-0.3) mg/dL 02/20/19 Range/Units 20:44 Absolute Neutrophils 6.94 H (1.2-6.7) k/cumm Absolute Lymphocytes 0.40 L (1.2-3.4) k/cumm Sodium (136-145) mmol/L Potassium (3.5-5.1) mmol/L Glucose (70-100) mg/dL Lactate (0.6-1.4) mmol/L Calcium (8.5-10.1) mg/dL Total Bilirubin (0.2-1.0) mg/dL C-Reactive Protein (0.0-0.3) mg/dL Vital Signs Temperature 38.0 C H 02/21/19 15:30 Temperature Source Tympanic 02/21/19 15:30 Pulse 90 02/21/19 15:30 Pulse Rhythm Regular 02/21/19 15:34 Respiratory Rate 16 02/21/19 15:30 Respiratory Effort Non-Labored 02/21/19 15:34 Respiratory Depth Normal 02/21/19 15:34 Respiratory Pattern Normal 02/21/19 15:34 Blood Pressure 119/77 02/21/19 15:30 Pulse Oximetry 96 02/21/19 15:30 Oxygen Delivery Method Room Air 02/21/19 15:30 Oxygen Flow Rate 0 02/21/19 15:30 Pain Level 0 02/21/19 15:30 Comment 02/21/19 11:05 Intake & Output 02/20/19 02/21/19 02/21/19 23:59 11:59 23:59 Intake Total 480 / 480 970 / 1035 65 / 1035 Output Total 400 / 400 800 / 1250 450 / 1250 Balance 80 / 80 170 / -215 -385 / -215 Weight 84.822 kg Intake: IV 360 / 360 300 / 365 65 / 365 Oral 120 / 120 670 / 670 Output: Urine 400 / 400 800 / 1250 450 / 1250 Other: Urine Color Yellow Yellow Yellow Urine Appearance Clear Clear Clear Urine Odor Normal Normal Comment pt reports voiding, unseen by nursing. hat in bathroom, reminded to save Stool Size Moderate Moderate Stool Characteristics Liquid Liquid Brown Green Voiding Methods Toilet Toilet Toilet Laboratory Results WBC 8.06 k/cumm (4.4-10.8) 02/20/19 20:44 RBC 4.90 m/cumm (4.50-6.00) 02/20/19 20:44 Hgb 15.3 g/dL (13.5-17.5) 02/20/19 20:44 Hct 43.9 % (40.0-50.0) 02/20/19 20:44 MCV 89.6 fL (80-95) 02/20/19 20:44 MCH 31.2 pg (27.0-33.0) 02/20/19 20:44 MCHC 34.9 g/dL (32.0-36.0) 02/20/19 20:44 RDW 13.0 % (11.8-14.1) 02/20/19 20:44 Plt Count 240 x1000/uL (130-400) 02/20/19 20:44 MPV 10.3 fL (8.0-11.0) 02/20/19 20:44 Immature Gran % 0.4 02/20/19 20:44 Neutrophils % 86.1 02/20/19 20:44 Lymphocytes % 5.0 02/20/19 20:44 Monocytes % 7.9 02/20/19 20:44 Eosinophils % 0.4 02/20/19 20:44 Basophils % 0.2 02/20/19 20:44 Absolute Neutrophils 6.94 k/cumm (1.2-6.7) H 02/20/19 20:44 Absolute Lymphocytes 0.40 k/cumm (1.2-3.4) L 02/20/19 20:44 Absolute Monocytes 0.64 k/cumm (0.11-0.7) 02/20/19 20:44 Absolute Eosinophils 0.03 k/cumm (0.0-0.7) 02/20/19 20:44 Absolute Basophils 0.02 k/cumm (0.0-0.2) 02/20/19 20:44 Sodium 135 mmol/L (136-145) L 02/20/19 20:44 Potassium 3.3 mmol/L (3.5-5.1) L 02/20/19 20:44 Chloride 100 mmol/L (98-107) 02/20/19 20:44 Carbon Dioxide 24.0 mmol/L (21.0-32.0) 02/20/19 20:44 Anion Gap 11.0 mmol/L (3-11) 02/20/19 20:44 BUN 13 mg/dL (7-18) 02/20/19 20:44 Creatinine 1.11 mg/dL (0.70-1.30) 02/20/19 20:44 Estimated GFR/1.73 m2 >= 60.00 (mL/min/1.73m2) 02/20/19 20:44 Glucose 150 mg/dL (70-100) H 02/20/19 20:44 Lactate 2.0 mmol/L (0.6-1.4) H 02/20/19 20:44 Calcium 8.3 mg/dL (8.5-10.1) L 02/20/19 20:44 Total Bilirubin 1.7 mg/dL (0.2-1.0) H 02/20/19 20:44 AST 21 U/L (15-37) 02/20/19 20:44 ALT 43 U/L (12-78) 02/20/19 20:44 Alkaline Phosphatase 70 U/L (46-116) 02/20/19 20:44 C-Reactive Protein 5.05 mg/dL (0.0-0.3) H 02/20/19 20:37 Total Protein 6.9 g/dL (6.4-8.2) 02/20/19 20:44 Albumin 3.4 g/dL (3.4-5.0) 02/20/19 20:44
--- NOTE | 2019-02-21 16:57 | CHAPLAIN ---
Lamont was resting in bed when I visited. He was friendly and easily engaged in a conversation. His said his is on her way home from a conference in [place] and will be stopping in to see Lamont. His brother visited yesterday. He seems to be comfortable being here.
[2019-02-21] MEDS: Normal Saline 500 ML 200 ML IV (22:05)
[2019-02-22] MEDS: Normal Saline Flush 10 ML SYR IVP (01:31)
[2019-02-22] MEDS: VANCOMYCIN 1,000 MG in Normal Saline 250 ML 167 MG IVPB ×2 (01:32→10:16)
[2019-02-22 01:36] VITALS: TEMP 38.3
[2019-02-22 03:58] VITALS: BP 130/82; PULSE 77; RESP 18; TEMP 37.2; O2SAT 98
[2019-02-22] MEDS: PIPERACILLIN/TAZO 3.375 GM in Normal Saline 50 ML IVPB ×2 (03:59→09:31)
[2019-02-22] MEDS: Esomeprazole 40 MG CAPCR PO (07:03)
[2019-02-22 07:07] VITALS: BP 124/80; PULSE 73; RESP 18; TEMP 36.9; O2SAT 95
[2019-02-22 11:20] VITALS: BP 111/71; PULSE 64; RESP 18; TEMP 36.6; O2SAT 97
--- NOTE | 2019-02-22 12:39 | DSE_ITS ---
Date of service: 02/22/19 Time of Service: 12:32 DS: Diagnosis Discharge Diagnosis (1) Fever and chills: Status: Acute Discharge Plan Disposition Patient Disposition: HOME Condition: Good Discharge Details Chief Complaint: GenMedical Reason For Visit: TACHYCARDIA AND FEVER Admit Date/Time: 02/20/19 21:16 Admit Provider: Reynaldo Cedeño Attending Provider: Reynaldo Cedeño Primary Care Provider: Verona Noel ED Provider: Omar Craven Hospital Course Hospital Course: Patient was admitted to the hospital on 02/20/2019 for possible sepsis. Blood cultures were obtained and he was started on empiric IV antibiotics. Swelling in his right hand resolved overnight by simply having the Edwin bandage off. The wound in his right antecubital fossa from exploration of his biceps tendon was totally benign and without drainage. He was complaining of some diarrhea prior to admission. I thought he might have contracted C. difficile from his preop antibiotics on 02/19/2019. Test for C. difficile were negative. He felt better every day. He has no pain moving his right elbow. He was afebrile during the daytime on 02/21/2019. He had a fever spike at night to 38 degrees on 410. On 411 he was afebrile throughout the day. He was eating and drinking well. His surgical incision in the antecubital fossa on the right was totally benign. Blood cultures showed no growth after 48 hours. I felt he had completed his acute care goals. I thought he probably had a viral illness that caused his fever and chills. I thought the antibiotics could be stopped that he could be sent home. Home Meds and New Rx's Prescriptions: Continued esomeprazole magnesium [Nexium] 40 MG capsule,delayed release(DR/EC) 40 mg PO DAILY@0730 Qty: 30 RF: 0 ibuprofen 800 mg tablet 800 mg PO TID Qty: 30 RF: 0 hydrocodone-acetaminophen 5-325 mg tablet 1 tab PO Q6H PRN (Reason: pain) Qty: 14 RF: 0 acetaminophen [Tylenol] 325 MG tablet 650 mg PO Q6H PRN PRNQty: 30 RF: 0 Discharge Instructions Additional Instructions: May shower and get the codie wet on his right elbow. He should cover the codie with a light gauze dressing so that they do not catch on his clothing. May use his right arm as much as discomfort allows. Can take ibuprofen for any discomfort. Follow-up had originally scheduled appointment on 03/03/2019. Referrals: Anmol Morales MD [ [facility] STAFF PHYSICIAN] - (Has appt on 03/03/19) Activity:: Activity as Tolerated Equipment/Supplies:: No Equipment Needed Diet:: As Tolerated Discharge Orders Discharge Orders: Discharge Order (Routine); Ordered 02/22/19 Ordered By: Anmol Morales DS: Data Vitals/I&O Vitals and I&O: Vital Signs Temperature 36.6 C 02/22/19 11:20 Temperature Source Tympanic 02/22/19 11:20 Pulse 64 02/22/19 11:20 Pulse Rhythm Regular 02/22/19 07:40 Respiratory Rate 18 02/22/19 11:20 Respiratory Effort Non-Labored 02/22/19 07:40 Respiratory Depth Normal 02/22/19 07:40 Respiratory Pattern Normal 02/22/19 07:40 Blood Pressure 111/71 02/22/19 11:20 Pulse Oximetry 97 02/22/19 11:20 Oxygen Delivery Method Room Air 02/22/19 11:20 Oxygen Flow Rate 0 02/22/19 11:20 Pain Level 0 02/22/19 11:20 Comment 02/21/19 11:05 Intake & Output 02/21/19 02/22/19 02/22/19 23:59 11:59 23:59 Intake Total 768.333 / 1738.333 660 / 660 Output Total 1750 / 2550 500 / 500 Balance -981.667 / -811.667 160 / 160 Intake: IV 528.333 / 828.333 300 / 300 Oral 240 / 910 360 / 360 Output: Urine 1750 / 2550 500 / 500 Other: Urine Color Yellow Yellow Urine Appearance Clear Clear Urine Odor Normal Comment pt reports voiding, unseen by nursing. 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
--- NOTE | 2019-02-22 14:25 | PDOC.CMDIS ---
- If Service Date Differs Date of service: 02/22/19 Time of Service: 14:25 Care Management Discharge Reason for Hospitalization: Fever and chills Discharge Plan: Valdez will be discharged home with no services and is to follow up with his PCP and plan of care as prescribed. Patient/Family Education Needs: Discharge education, limitations, follow up plan of care and Ask Me Three
== END 2019-02-22 14:24 | disposition home or self-care (01) ==
LOC: ER 21:04 → MS 22:11
PROVIDERS: Admitting Provider Student in an Organized Health Care Education/Training Program; Emergency Provider Student in an Organized Health Care Education/Training Program; Visit Provider Student in an Organized Health Care Education/Training Program
DX: R50.82 Postprocedural fever (principal); I97.191 Other postprocedural cardiac functional disturbances following other surgery; R00.0 Tachycardia, unspecified; Z98.890 Other specified postprocedural states
CPT/HCPCS: 36415; 80053; 87040; 96365; 96367; 99232; 99253; 99285; NC; 73070; 80202; 83605; 85025; 86140; 87324; 99284; G0378; J2543

== ENCOUNTER 2019-08-31 08:49 | Outpatient (CLI) | payer OTHER, SELFPAY ==
--- NOTE | 2019-08-31 08:20 | DI.RAD_ITS ---
EXAM: XR SHOULDER RT COMPLETE 2+V INDICATION: R arm pain. COMPARISON: No exams were available for comparison TECHNIQUE: 2D digital imaging was performed. FINDINGS: No fracture or dislocation is seen. There is minimal spurring of the glenoid. There is no signific ant AC joint spurring. There is slight spurring at the tip of the acromion. No tendon or joint spac e calcifications are seen. IMPRESSION: Minimal degenerativechanges.
== END 2019-08-31 09:09 ==
PROVIDERS: Visit Provider Student in an Organized Health Care Education/Training Program
DX: M79.601 Pain in right arm (principal); M25.511 Pain in right shoulder; M19.011 Primary osteoarthritis, right shoulder
CPT/HCPCS: 73030

== ENCOUNTER 2019-09-14 07:12 | Outpatient (CLI) | payer OTHER, SELFPAY ==
--- NOTE | 2019-09-14 10:55 | DI.MRI_ITS ---
EXAM: MR UPPER JOINT RT WO CLINICAL HISTORY: R shoulder pain and weakness, M25.511. TECHNIQUE: Multiplanar multisequence MRI was performed. COMPARISON: XR SHOULDER RT COMPLETE 2+V from 08/31/2019 FINDINGS: There is a minimal amount of fluid in the glenohumeral joint and mild spurring at the tip of the ac romion. A small amount of fluid is seen in the subacromial subdeltoid bursa. There is a mild amount of increased signal in the supraspinatus tendon which could indicate mild tendinosis. No full-thickn ess tendon tear is seen. The infraspinatus, subscapularis, teres minor and biceps tendons are unrema rkable. The marrow signal appears normal. There is no muscle atrophy. No glenoid defects are seen. IMPRESSION: Mild impingement by the tip of the acromion. Mild supraspinatus tendinosis.
== END 2019-09-14 07:32 ==
PROVIDERS: Visit Provider Student in an Organized Health Care Education/Training Program
DX: M25.511 Pain in right shoulder (principal); M75.41 Impingement syndrome of right shoulder; M75.81 Other shoulder lesions, right shoulder
CPT/HCPCS: 73221

== ENCOUNTER 2019-11-29 00:53 | Outpatient (CLI) | payer OTHER, SELFPAY ==
--- NOTE | 2019-11-29 13:56 | DI.RAD_ITS ---
EXAM: RF JOINT INJECTION FLUORO GUID CLINICAL HISTORY: RT SHOULDER PAIN, RT ROTATOR CUFF TENDINITIS, RT SHOULDER INJECTION TECHNIQUE: 2D and realtime digital imaging was performed. COMPARISON: No exams were available for comparison FINDINGS: Fluoroscopy was provided for Dr. Cedeño for guidance with performing a right shoulder injection. Stephanie whaley see procedure note for details. Fluoro time: 1.0 seconds
[2019-11-29] MEDS: Omnipaque 300 MG/ML 10 ML BTL IJ (14:34)
[2019-11-29] MEDS: Bupivacaine 0.5% Pres-Free 10 ML VIAL 6 ML IJ (14:34)
[2019-11-29] MEDS: methylPREDNISolone ACETATE 80 MG/ML VIAL IM (14:35)
--- NOTE | 2019-11-29 14:48 | W.PROCNOTE ---
Date of service: 11/29/19 Time of Service: 14:02 Procedure Note Date of procedure: 11/29/19 Procedure: Right Shoulder Injection Surgeon/Proceduralist/Physician: Reynaldo Cedeño Procedure Diagnosis: Right Articular Sided RTC Tear Procedure Indications: Valdez has had persistent pain of the RIGHT shoulder. Noninvasive measures have been tried. To serve as both diagnostic and therapeutic, and to target the articular side of the rotator cuff and the biceps tendon, an injection under fluoroscopy was recommended. I had discussed the risks of the procedure and the patient elected to proceed. Procedure Description: Valdez was greeted in the flouroscopy room. The correct side was identified and the consent was reviewed with the patient and signed. The patient was then placed in the supine position on the fluoroscopy table. The RIGHT shoulder was then prepped with Chloraprep. The anterior injection starting point was identiifed by bony landmarks and fluoroscopy. The skin and soft tissue in the tract of the injection was anesthetized with 1% Lidocaine. A spinal needle was then inserted deep into the shoulder joint at the level of the recess between the glenoid and superior humeral head. A small amount of Omnipaque solution was injected to confirm intraarticular placement. Once confirmed, the shoulder was injected with 4cc of 0.5% Bupivicaine and 80mg of Depo-Medrol. A bandaid was placed on the injection site. The patient tolerated the procedure well and noted improvement in pre-injection pain.
== END 2019-11-29 01:13 ==
PROVIDERS: Visit Provider Student in an Organized Health Care Education/Training Program
DX: M75.81 Other shoulder lesions, right shoulder (principal); M25.511 Pain in right shoulder; S46.011A Strain of muscle(s) and tendon(s) of the rotator cuff of right shoulder, initial encounter
CPT/HCPCS: 20610; 77002; J1040

== ENCOUNTER 2020-01-22 08:52 | Outpatient (REF) | payer BC, SELFPAY ==
[2020-01-22 12:31] LABS: Calculated LDL 138 mg/dL (<100); Cholesterol 213 mg/dL (<200); Glucose 103 mg/dL (74-106); HDL Cholesterol 47 mg/dL (40-60); Triglyceride 142 mg/dL (<150)
== END 2020-01-22 09:12 ==
LOC: NCHCN 08:52
PROVIDERS: PCP Internal Medicine; Visit Provider Internal Medicine
DX: Z00.00 Encounter for general adult medical examination without abnormal findings (principal); Z13.1 Encounter for screening for diabetes mellitus; Z13.220 Encounter for screening for lipoid disorders
CPT/HCPCS: 80061; 82947

== ENCOUNTER 2020-01-25 09:46 | Outpatient (CLI) | payer OTHER, SELFPAY ==
--- NOTE | 2020-01-25 09:00 | DI.RAD_ITS ---
EXAM: XR KNEE RT 3V AP,LAT,ILIANA CLINICAL HISTORY: eval R knee pain. TECHNIQUE: 2D digital imaging was performed. COMPARISON: No exams were available for comparison FINDINGS: BONES: No acute fracture is present. No bony destructive lesion is seen. Small enthesophyte at the garner perior aspect of the patella. JOINTS: The knee is normally aligned. No joint effusion is seen. Mild periarticular spurring is seen at the posterior patella. SOFT TISSUE: Normal. IMPRESSION: Mild degenerative changes of the right knee. DATA REPOSITORY: RADIATION DOSE DELIVERED:
== END 2020-01-25 10:06 ==
PROVIDERS: PCP Internal Medicine; Visit Provider Student in an Organized Health Care Education/Training Program
DX: M25.561 Pain in right knee (principal); M17.11 Unilateral primary osteoarthritis, right knee
CPT/HCPCS: 73562

== ENCOUNTER 2020-02-06 01:30 | Outpatient (CLI) | payer OTHER, SELFPAY ==
--- NOTE | 2020-02-06 14:21 | DI.MRI_ITS ---
EXAM: MR LOWER JOINT RT WO CLINICAL HISTORY: RT KNEE PAIN, M25.561, S/P FALL IN DECEMBER 2019. TECHNIQUE: Multiplanar multisequence MRI was performed. COMPARISON: Prior x-ray 01/25/2020 FINDINGS: BONES: There is no fracture or contusion pattern. JOINTS: Articular cartilage is unremarkable. No effusion is present. TENDONS: Extensor mechanism: There is hyperintense signal seen in the quadriceps tendon at its insertion site onto the patella. This may represent a partial tear. The patellar tendon is unremarkable. Medial retinaculum: Unremarkable. Lateral retinaculum: Unremarkable. Popliteus: Unremarkable. MUSCLES: Unremarkable. MENISCI: There is intermediate signal intensity in the body and posterior horn of the medial meniscus . It does not contact the articular surface, suspicious for degeneration. No evidence of a meniscal tear. The lateral meniscus is unremarkable. SOFT TISSUES: Unremarkable. LIGAMENTS: Anterior Cruciate: Unremarkable. Posterior Cruciate: Unremarkable. Medial Collateral:Unremarkable. Lateral Collateral: Unremarkable. OTHER: There is a fluid collection deep to the pes tendons suspicious for pes anserinus bursitis. Th ere also appears to be a small popliteal cyst. IMPRESSION: 1. Hyperintense signal seen in the quadriceps tendon at its insertion site into the patella suspiciou s for a partial tear. 2. Degenerative signal seen in the medial meniscus. 3. No other evidence of a meniscal or ligament tear. 4. Fluid collection medially suspicious for pes bursitis. Small popliteal cyst. 5. No evidence of an occult fracture. DATA REPOSITORY:
== END 2020-02-06 01:50 ==
PROVIDERS: PCP Internal Medicine; Visit Provider Student in an Organized Health Care Education/Training Program
DX: M25.561 Pain in right knee (principal); M70.51 Other bursitis of knee, right knee; M71.21 Synovial cyst of popliteal space [Baker], right knee
CPT/HCPCS: 73721

== ENCOUNTER 2020-03-28 09:44 | Outpatient (CLI) | payer BC, SELFPAY ==
[2020-03-29 17:39] LABS: COVID-19 RT-PCR Result NEGATIVE (Negative)
== END 2020-03-28 10:04 ==
PROVIDERS: PCP Internal Medicine; Visit Provider Surgery
DX: Z11.59 Encounter for screening for other viral diseases (principal); Z01.818 Encounter for other preprocedural examination
CPT/HCPCS: U0003

== ENCOUNTER 2020-04-02 06:17 | Day surgery (SDC) | payer BC, SELFPAY ==
--- NOTE | 2020-04-02 06:26 | W.PREOPHP ---
Date of service: 04/02/20 Time of Service: 06:26 Assessment and Plan Assessment and plan (1) Garza's esophagus determined by biopsy: Status: None Assessment and plan: A\\ Mr. Jay is a 59 year old male with a history of Garza's. LAst EGD was in October of 2018. I asked him to come back in one year because of how extensive it was. He has been taking his Nexium daily and has had no symptoms. P\\ EGD under sedation Risks, benefits and complications have been reviewed. Complications include but are not limited to bleeding, pain, perforation, sore throat, aspiration, and adverse reaction to the medications. Questions were entertained and answered to their satisfaction and they wished to proceed. No guarantees were given or implied. (2) COVID-19 virus not detected: Status: Acute History of Present Illness Narrative: Lamont is back to see me today to discuss a follow up EGD. He has been doing well. He denies any dysphagia to solids or liquids, he denies any pain with swallowing, epigastric pain or burning chest pain. He has no new health issues since he was here just over 1 year ago. He denies any Cardiac issues, no chest pain with rest or activity. No shortness of breath. His case was rescheduled due to COVID-19. There have been no changes in his health since he was seen. HIs COVID-19 test was negative Review of Systems Constitutional Constitutional: Denies fever(s) Cardiovascular Cardiovascular: Denies chest pain, Denies irregular heart rhythm, Denies palpitations and Denies dyspnea Respiratory Respiratory: Denies cough and Denies dyspnea Gastrointestinal Gastrointestinal: Reports as per HPI and Reports system reviewed and no additional complaints, except as documented Endocrine Endocrine: Denies palpitations [facility] Medical History Acute appendicitis (Inactive) Biceps tendinitis of right shoulder (Acute) Cholelithiasis (Acute) Fever and chills (Inactive) Right rotator cuff tendinitis (Inactive) Surgical History Appendectomy (05/04/18) Colonoscopy - IV Sedation (12/24/13) EGD - IV Sedation (12/24/13) w/ bx EGD - MAC (05/29/18) Hx of elbow surgery (Acute) Right arm. 02/21/2019 Family History Maternal Aunt Colon cancer Social History Smoking/Tobacco Use Status: Never Alcohol Intake: current Alcohol Intake frequency: a few times a week Alcohol type: beer Drug use: Never Substance use type: does not use Household members: spouse Housing: house Current gender identity: male Do you feel safe at home: Yes Do you feel safe in your relationship?: Yes Meds Home Medications and Allergies Home Medications Medication Instructions Recorded Confirmed Type acetaminophen [Tylenol] 650 mg PO Q6H PRN PRN #30 tab 05/05/18 03/28/20 Rx esomeprazole magnesium [Nexium] 40 mg PO DAILY@0730 #30 capcr 05/29/18 03/28/20 Rx ibuprofen 800 mg PO TID #30 tab 02/19/19 03/28/20 Rx Allergies Allergy/AdvReac Type Severity Reaction Status Date / Time venom-honey bee Allergy Severe Anaphylaxsi Unverified 03/28/20 09:05 [bee venom (honey bee)] s Exam HENMT Head: normocephalic Resp Effort & Inspection: normal respiratory effort Auscultation: clear to auscultation bilaterally Cardio Rate: regular rate Rhythm: regular rhythm
--- NOTE | 2020-04-02 06:30 | ENDO_ITS ---
Date of service: 04/02/20 Time of Service: 07:36 Endoscopy Report DATE OF PROCEDURE: 04/02/20 PRE-OP DIAGNOSIS: Garza's esophagitis POST-OP DIAGNOSIS: same (Hiatal Hernia) PROCEDURE: EGD with biopsies SURGEON: Lyssa Shculer ANESTHESIA: other (General/ ASA 2/Angelo Bobby CRNA) ESTIMATED BLOOD LOSS: 3 PATHOLOGY: other (Ge junction bx, distal esophagus biopsy) COMPLICATIONS: None DISPOSITION: same day INDICATIONS: Mr. Jay is a 59 year old male with a history of Garza's. LAst EGD was in October of 2018. I asked him to come back in one year because of how extensive it was. He has been taking his Nexium daily and has had no symptoms. Recommend EGD under sedation Risks, benefits and complications have been reviewed. Complications include but are not limited to bleeding, pain, perforation, sore throat, aspiration, and adverse reaction to the medications. Questions were entertained and answered to their satisfaction and they wished to proceed. No guarantees were given or implied. FINDINGS: 1-2 cm area of Garza's Hiatal Hernia PROCEDURE DESCRIPTION: After informed consent was obtained the patient was take to the procedure room and placed in a supine position. Monitors were applied and a time out was done. The patients name, date of , procedure type, allergies to medications and metal in their body was reviewed. A bite block was placed and the patient was sedated. COVID droplet precautions were observed. Patients is Covid negative. Once sedated and comfortable the gastroscope was advanced through the oropharynx which was grossly normal into the esophagus. The proximal and mid- esophagus were normal. In the distal esophagus there was inflmmation and Garza's noted. The scope was advanced into the stomach and through the pylorus into the 3rd portion of the duodenum. The duodenum was noted to be normal. The scope was retracted back into the stomach. There was no infla mmation and no ulcers. The scope was retro-flexed. The cardia and fundus were noted to be normal. There was a hiatal hernia noted that measured about 5 cm. The scope was retracted back into the esophagus and biopsies were done of the GE junction and distal esophagus for surveillance of Garza's. The GE junction was at 30 cm. The scope was removed and the patient was woken up and taken back to [facility] in stable condition. Follow up: depends on pathology results. I will call patient with results.
--- NOTE | 2020-04-02 06:33 | W.PM.DSUDISC ---
Discharge Plan Disposition Patient Disposition: HOME Condition: Good Discharge Details Reason For Visit: Garza's esophagitis Attending Provider: Lyssa Schuler Primary Care Provider: Abelino Lagunas Home Meds and New Rx's Prescriptions: Continued esomeprazole magnesium [Nexium] 40 MG capsule,delayed release(DR/EC) 40 mg PO DAILY@0730 Qty: 30 RF: 0 ibuprofen 800 mg tablet 800 mg PO TID Qty: 30 RF: 0 acetaminophen [Tylenol] 325 MG tablet 650 mg PO Q6H PRN PRNQty: 30 RF: 0 Discharge Instructions Instructions: Hiatal Hernia (DC), Garza Esophagus (DC) Additional Instructions: Findings: Hiatal hernia Garza's (biopsies done) Follow up: depends on patholgy results. Will most likely need another Upper endoscopy in 2-3 years Please call if you develop: fevers >101.5 Nausea or Vomiting Abdominal pain that is not transient DAY SURGERY UNIT POST ENDOSCOPY INSTRUCTIONS 1. Because there will be medication in your system for the next 24 hours, you may feel a little sleepy. Your coordination will be affected. Therefore: a. Do not drive or operate dangerous equipment for 24 hours. b. Do not drink alcohol beverages for 24 hours (not even beer). c. Plan to go home and rest for the day. 2. Generally there are no restrictions on your activity after a day or so has gone by, but you may feel a bit fatigued for a few days. 3 After you arrive home you may have a light meal and return to a normal diet as you can tolerate it without feeling sick to your stomach. 4. After surgery, you may feel pain or discomfort. This should be only transient, but if it persists please contact your doctor. 5. If there are any questions regarding the findings of your procedure, please feel free to contact your doctor. 6. If you are unable to contact your doctor with a problem, contact the hospital at [phone]. 7. Continue all your regular medications unless directed otherwise. I understand the above instructions and have no questions. 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
[2020-04-02 06:36] VITALS: BP 127/83; PULSE 69; RESP 18; TEMP 36.6; O2SAT 98
[2020-04-02] MEDS: Lactated Ringers 1,000 ML 80 ML IV (06:47)
--- NOTE | 2020-04-02 07:25 | ESO_PTH ---
PATIENT: Lamont Jay LOC: [facility] U#:[id number] AGE/SX: 59/M ROOM: RE04/02/[address]: Lyssa Schuler MD : 1960 BED: DIS: 04/02/2020 SPEC #: [id number] RECD: 04/02/20 11:32 STATUS: KVNG REQ #: [id number] LUTHER: 04/02/20 07:[address]: Lyssa Schuler DEPT: Surgical Specimen RECD BY: Lupe Lee ENTERED: 04/02/20 11:33 SP TYPE: Eso OTHR DR: Abelino Lagunas Tissues: 1 - ESOPHAGUS BIOPSY 2 - ESOPHAGUS BIOPSY Procedures: GROSS AND MICRO LEVEL 4 Comments: [id number]
[2020-04-02 07:56] VITALS: BP 129/92; PULSE 66; RESP 16; TEMP 36.5; O2SAT 97
== END 2020-04-02 08:32 | disposition home or self-care (01) ==
PROVIDERS: PCP Internal Medicine; Visit Provider Surgery
PROC: 0DJ68ZZ Inspection of Stomach, Via Natural or Artificial Opening Endoscopic (ICD-10-PCS; CPT 43235; principal; 2020-04-02 07:30)
DX: K22.70 Barrett's esophagus without dysplasia (principal); K21.0 Gastro-esophageal reflux disease with esophagitis; K44.9 Diaphragmatic hernia without obstruction or gangrene
CPT/HCPCS: 43239; 88305; NC; J2704

== ENCOUNTER 2020-07-09 20:20 | Outpatient (REF) | payer BC, SELFPAY ==
[2020-07-12 19:59] LABS: SARS-CoV-2 RNA Undetected (Undetected); SARS-CoV-2 Specimen Source Nasopharynx
== END 2020-07-09 20:40 ==
LOC: NCHCN 20:20
PROVIDERS: PCP Internal Medicine; Visit Provider Internal Medicine
DX: Z20.828 Contact with and (suspected) exposure to other viral communicable diseases (principal)
CPT/HCPCS: U0003

== ENCOUNTER 2022-05-11 17:07 | Outpatient (REF) | payer OTHER, SELFPAY ==
[2022-05-13 12:39] LABS: PSA, Screening 6.4 ng/mL (<=4.5)
== END 2022-05-11 17:08 | disposition home or self-care (01) ==
LOC: NCHCN 17:07
PROVIDERS: PCP Internal Medicine; Visit Provider Internal Medicine
DX: Z00.00 Encounter for general adult medical examination without abnormal findings (principal); Z12.5 Encounter for screening for malignant neoplasm of prostate
CPT/HCPCS: 84153

== ENCOUNTER 2022-07-12 16:11 | Outpatient (REF) | payer OTHER, SELFPAY ==
[2022-07-13 18:23] LABS: PSA, Diagnostic 6.7 ng/mL (<=4.5)
== END 2022-07-12 16:12 | disposition home or self-care (01) ==
LOC: NCHCN 16:11
PROVIDERS: PCP Internal Medicine; Visit Provider Internal Medicine
DX: R97.20 Elevated prostate specific antigen [PSA] (principal)
CPT/HCPCS: 84153

== ENCOUNTER 2022-10-19 03:15 | Outpatient (CLI) | payer OTHER, SELFPAY ==
[2022-10-20 19:20] LABS: Free PSA/PSA Ratio 0.06 ratio
== END 2022-10-19 03:16 | disposition home or self-care (01) ==
LOC: LBO 03:15
PROVIDERS: PCP Internal Medicine; Visit Provider Nurse Practitioner Gerontology
DX: R97.20 Elevated prostate specific antigen [PSA] (principal); Z80.42 Family history of malignant neoplasm of prostate
CPT/HCPCS: 36415; 84154

== ENCOUNTER 2022-12-24 12:56 | Outpatient (REF) | payer OTHER, SELFPAY ==
--- NOTE | 2022-12-24 11:30 | PROST_PTH ---
PATIENT: Lamont Jay LOC: [facility] U#:[id number] AGE/SX: 62/M ROOM: RE12/24/[address]: Christopher Smith MD : 1960 BED: DIS: 12/24/2022 SPEC #: [id number] RECD: 12/24/22 13:06 STATUS: KVNG RE #: [id number] LUTHER: 12/24/22 11:[address]: Christopher Smith DEPT: Surgical Specimen RECD BY: Lupe Lee ENTERED: 12/24/22 13:08 SP TYPE: PROST OTHR DR: Abelino Lagunas Tissues: 1 - PROSTATE NEEDLE BIOPSY 2 - PROSTATE NEEDLE BIOPSY 3 - PROSTATE NEEDLE BIOPSY 4 - PROSTATE NEEDLE BIOPSY 5 - PROSTATE NEEDLE BIOPSY 6 - PROSTATE NEEDLE BIOPSY 7 - PROSTATE NEEDLE BIOPSY 8 - PROSTATE NEEDLE BIOPSY 9 - PROSTATE NEEDLE BIOPSY 10 - PROSTATE NEEDLE BIOPSY 11 - PROSTATE NEEDLE BIOPSY 12 - PROSTATE NEEDLE BIOPSY Procedures: GROSS AND MICRO LEVEL 4 IMMUNOPEROXIDASE STAIN Comments: [id number]
== END 2022-12-24 12:57 | disposition home or self-care (01) ==
LOC: LBN 12:56
PROVIDERS: PCP Internal Medicine; Visit Provider Urology
DX: C61 Malignant neoplasm of prostate (principal); Z80.42 Family history of malignant neoplasm of prostate
CPT/HCPCS: 88305; 88361

== ENCOUNTER 2023-01-12 01:47 | Outpatient (CLI) | payer OTHER, SELFPAY ==
--- NOTE | 2023-01-12 07:15 | DI.NM_ITS ---
Exam(s) NM BONE SCAN WHOLE BODY GRP EXAM: NM BONE SCAN WHOLE BODY GRP CLINICAL HISTORY: baseline,new diagnosis prostate cancer,c61. TECHNIQUE: Injected Dose: 25 mCi Tc-99m MDP Delayed Images: 2-3 hours. COMPARISON: CT ABD PELVIS WITH CONTRAST from 05/04/2018 FINDINGS: There is some focal uptake seen in the lower right side of the lumbosacral spine which is most probab ly degenerative. There is an element of asymmetric facet arthropathy on the right side at this level on abdominal CT scan of April 2018. No other significant abnormal uptake seen in the spinal column. Mild thoracic scoliosis noted. There is some symmetrical uptake in both wrists at the 1st carpometacarpal joints consistent with deg enerative change. IMPRESSION: No evidence to suggest osseous metastatic disease. DATA REPOSITORY:
== END 2023-01-12 02:07 ==
PROVIDERS: PCP Internal Medicine; Visit Provider Urology
DX: C61 Malignant neoplasm of prostate (principal); Z12.89 Encounter for screening for malignant neoplasm of other sites; M47.817 Spondylosis without myelopathy or radiculopathy, lumbosacral region; M18.0 Bilateral primary osteoarthritis of first carpometacarpal joints
CPT/HCPCS: 78306

== ENCOUNTER 2023-04-14 08:23 | Outpatient (CLI) | payer OTHER, SELFPAY ==
--- NOTE | 2023-04-14 09:00 | RT.EKG_ITS ---
APPROVED REPORT Exam: Resting ECG Reason for Exam: PRE SURGICAL Patient Location: O HR:57 bpm ECG Measurements Heart Rate 57 AXIS AL 177 P 47 QRSd 93 QRS 48 QT 390 T 46 QTc 380 Conclusion Sinus rhythm...normal P axis, V-rate 50- 99 Normal Electrocardiogram
== END 2023-04-14 08:24 | disposition home or self-care (01) ==
PROVIDERS: PCP Internal Medicine; Visit Provider Surgery
DX: Z01.810 Encounter for preprocedural cardiovascular examination (principal)
CPT/HCPCS: 93005; 93010

== ENCOUNTER 2023-05-16 13:08 | Outpatient (REF) | payer OTHER, SELFPAY ==
[2023-05-16 14:53] LABS: Hemoglobin A1C 5.3 % (<5.7)
[2023-05-16 15:00] LABS: BUN 14 mg/dL (7-18); CREATININE 0.9 mg/dL (0.70-1.30); Calcium 9.4 mg/dL (8.5-10.1); Chloride 104 mmol/L (98-107); Estimated GFR 96.57 (mL/min/1.73m2); Glucose 110 mg/dL (74-106); Potassium 4.3 mmol/L (3.5-5.1); Sodium 138 mmol/L (136-145)
== END 2023-05-16 13:09 | disposition home or self-care (01) ==
LOC: NCHCN 13:08
PROVIDERS: PCP Internal Medicine; Visit Provider Internal Medicine
DX: Z00.00 Encounter for general adult medical examination without abnormal findings (principal); C61 Malignant neoplasm of prostate
CPT/HCPCS: 80048; 83036

== ENCOUNTER 2023-05-26 02:05 | Outpatient (CLI) | payer OTHER, SELFPAY ==
--- NOTE | 2023-05-26 07:40 | DI.RAD_ITS ---
Exam(s) XR CHEST 2V PA LATERAL EXAM: XR CHEST 2V PA LATERAL CLINICAL HISTORY: PREOP FOR PROSTATE SURGERY, C61. TECHNIQUE: 2D digital imaging was performed. COMPARISON: CT ABD PELVIS WITH CONTRAST from 05/04/2018 FINDINGS: 2 views: Heart size is normal. The mediastinum is not widened. For inflation noted but no infiltrates nor pleural effusions. No pulmonary edema. No pneumothorax. IMPRESSION: No acute pulmonary findings. DATA REPOSITORY: RADIATION DOSE DELIVERED:
== END 2023-05-26 02:25 ==
LOC: DI 02:06
PROVIDERS: PCP Internal Medicine; Visit Provider Surgery
DX: C61 Malignant neoplasm of prostate (principal); Z01.811 Encounter for preprocedural respiratory examination; Z01.818 Encounter for other preprocedural examination
CPT/HCPCS: 71046

== ENCOUNTER 2024-03-15 07:05 | Day surgery (SDC) | payer OTHER, SELFPAY ==
--- NOTE | 2024-03-14 21:05 | W.PM.DSUDISC ---
Date of service: 03/15/24 Time of Service: 09:30 Discharge Plan Disposition Patient Disposition: Home Condition: Good Discharge Details Reason For Visit: EGD and colonoscopy Attending Provider: Beau Kaur Primary Care Provider: Minor Baez Home Meds and New Rx's Prescriptions: Continued ibuprofen 800 mg tablet 800 mg PO TID PRN tadalafil [Cialis] 5 mg tablet 5 mg PO DAILY Qty: 90 4RF esomeprazole magnesium [Nexium] 40 MG capsule,delayed release(DR/EC) 40 mg PO DAILY@0730 Qty: 30 0RF acetaminophen [Tylenol] 325 MG tablet 650 mg PO Q6H PRN PRNQty: 30 0RF Discontinued bisacodyl [Dulcolax (bisacodyl)] 5 mg tablet,delayed release (DR/EC) 5 mg PO ONCE Qty: 4 0RF polyethylene glycol 3350 17 gram/dose powder 17 g PO DAILY Qty: 238 0RF Discharge Instructions Instructions: Hiatal Hernia (GEN), Diverticulosis (GEN), Colorectal Polyps (GEN), Garza Esophagus (GEN), Diverticulosis Diet (GEN) Additional Instructions: Lamont, it is great to meet you today, and I hope that the procedure was fairly comfortable for you. Both the upper and the lower endoscopy procedures went just fine. With regards to your upper endoscopy. You do have signs of Garza's esophagus. I measured this at 9 cm of length today. This is a little bit shorter than your previous endoscopy. I performed multiple biopsies all through this area to test for something called metaplasia or dysplasia. These will be sent off to the pathologist for their review, and once I have that information, I will be in touch to talk about any other treatment options if they are needed. Incidentally, you also have a bit of a hiatal hernia. I would estimate this at a grade 3 out of 4. Hiatal hernias are typically treated based on patient's symptoms. However, the presence of Garza's esophagus can influence this a bit. As I mentioned above, I like to see what the biopsy results show before offering any strong recommendations regarding the management of your hiatal hernia. Your colonoscopy went very smoothly. I found 1 polyp, which I removed today. This will be tested, and the nature of that polyp will inform us regarding the timing of your next colonoscopy. Incidentally, you also have some diverticulosis. Diverticula are weak spots in the muscular part of the colon wall. These cause little pouches or pockets to form. Most patients are never bothered by them, but they can become infected, inflamed, and can bleed from time to time. I have attached some general information here regarding basic approaches for diverticular disease Like you mentioned above, I will wait for the biopsy results before offering any other recommendations. If you have any questions in the meantime, though, please do not hesitate to ask. 1. If tolerated, consume a soft, low fiber diet for 1-2 days. 2. Do not drive, drink alcohol, operate machinery, make critical decisions, or do activities that require coordination or balance for 24 hours. 3. Because air was put into your colon during the procedure, expelling air from your rectum (passing gas or farting) is normal. 4. You may not have a bowel movement for 1-3 days because of the colonoscopy prep. This is normal. 5. You may experience a sore throat for 24 to 48 hours. You may use throat lozenges or gargle with warm salt water to relieve the discomfort. 6. Because air was put into your stomach during the procedure, you may experience some belching. 7. Go directly to the emergency room if you notice any of the following: Develop chills (warm to touch), or if you have a thermometer and your temperature is above 101 Difficulty breathing or difficultly swallowing Persistent vomiting Severe abdominal pain, other than gas cramps Severe chest pain Black, tarry stools Any bleeding ? exceeding one tablespoon 8. Call your physician if the site where your intravenous was started becomes red, swollen, painful, and warm to touch. 9. Your physician has reviewed your pre-procedure medications. Please continue to take those medications as previously ordered. You will be given specific information/education regarding any changes to your medications before leaving. Stand Alone Forms: Anesthesia Discharge Inst., Christine Werner (DSU) Activity:: Activity as Tolerated Remove Dressings/Wound Care:: 24 hours Diet:: As Tolerated Discharge Orders Discharge Orders: Discharge Order (Routine); Ordered 03/14/24 Ordered By: Beau Kaur DS: Diagnosis Discharge Diagnosis (1) Encounter for screening colonoscopy: Status: Acute Asessment and Plan: Follow-up on biopsy results and polypectomy result
--- NOTE | 2024-03-14 21:09 | W.PM.ENDDOP ---
Date of service: 03/15/24 Time of Service: 09:34 Endoscopy Report DATE OF PROCEDURE: 03/15/24 PRE-OP DIAGNOSIS: Barrets esophagus and screening colonoscopy POST-OP DIAGNOSIS: other (Long segment Garza's esophagus, grade 3 hiatal hernia; colon polyp, diverticulosis) PROCEDURE: EGD with biopsies and colonoscopy with polypectomy SURGEON: Beau Kaur ANESTHESIA TYPE: General:No Airway ESTIMATED BLOOD LOSS: 15 PATHOLOGY: other (Random biopsies of gastric antrum and body, biopsies of GE junction at 37 cm, four-quadrant biopsies of the Garza's esophagus at GE junction (37 cm), 35 cm, 30 cm, 26 cm; 0.25 cm flat colon polyp at 50 cm) COMPLICATIONS: None DISPOSITION: same day INDICATIONS: Malka is a 63 year old man with Garza's esophagus who needs his next screening EGD and colonoscopy for routine health maintenance. PREP: Miralax/Dulcolax PROCEDURE START TIME: 08:33 PROCEDURE END TIME: 09:08 COLONOSCOPY RETRACTION TIME: 11 FINDINGS: 9 cm Garza's esophagus; 0.25 cm flat colon polyp at 50 cm from the anus, diverticulosis PROCEDURE DESCRIPTION: After the initiation of monitored anesthetic care, and with the assistance of a bite block, I advanced a standard gastroscope through the mouth past the hypopharynx and into the esophagus.? Under the direct vision of the scope, I advanced down the esophagus towards the stomach.? A mildly irregular Z-line was encountered around 26 cm from the incisors. Narrowband imaging was used to assist with analysis here. There was 9 cm of Garza's esophagus extending down to the GE junction at 37 cm. Advance the camera into the stomach and perform retroflexion. There was bile within the stomach. This was irrigated clear. There is evidence of hiatal hernia. I did estimate this is a grade 3. Stomach was insufflated until the rugae were obliterated. There were small fundic gland polyps that appeared benign. The camera was turned antegrade, and advanced down around the incisura angularis towards the pylorus. Gastric antrum and pylorus appeared normal. I navigated across the pylorus into the duodenum. The mucosa was normal and healthy appearing. I then brought the camera back up into the stomach and perform some random biopsies of the gastric antrum and body to rule out Helicobacter pylori. I brought the camera back up to the GE junction at 37 cm from the incisors. Four-quadrant biopsies were performed with cold forceps here. I repeated four-quadrant biopsies of the Garza's esophagus at 35 cm, 30 cm, and 26 cm from the incisors. The camera was then advanced back down into the stomach and emptied. I then brought the camera out along the length of the esophagus. No other abnormalities were appreciated. We then moved Lamont into the left lateral decubitus position. I began by performing an external anorectal exam.? Perineum and skin were normal, as was the anal verge.? There was no evidence of external hemorrhoids.? Next, I performed a digital rectal exam.? I did not appreciate any abnormal findings.? Next, I advanced a colonoscope into the rectal vault.? I performed retroflexion.? This was normal.? Using insufflation, I then advanced the colonoscope beyond the rectal folds and into the sigmoid colon before advancing towards the cecum.? There is sigmoid diverticulosis.? The scope was noted to be in the cecum by identification of the ileocecal valve and appendiceal orifice.? I then began withdrawing the colonoscope using repeated irrigation as necessary for full evaluation of the colonic mucosa. Around 50 cm from the anal verge I identified a 0.25 cm polyp. ?It appeared flat in character. ?I was able to remove this with a cold forcep polypectomy. ?I examined the site, and there was minimal bleeding. ?Once this was completed, I continued to withdraw the scope and examine the remainder of the colonic mucosa.?Once the scope was withdrawn to the level of the rectum, great care was taken to examine portions of the rectal folds.? Finally, the scope was withdrawn and the patient was brought to the same-day surgery recovery unit as the anesthetic wore off. ?The findings and instructions were shared with the patient prior to discharge. The Trosper bowel prep score from right to left was 3, 3, 3
[2024-03-15 07:18] VITALS: BP 127/95; PULSE 67; RESP 16; TEMP 36.6; O2SAT 99
[2024-03-15] MEDS: Lactated Ringers 1,000 ML 80 ML IV (07:26)
--- NOTE | 2024-03-15 08:21 | W.ANESPRE ---
General Info Date of Service Date Performed: 03/15/24 Height: 5 ft 11 in Weight: 80.5 kg Body Mass Index (BMI): 24.7 Surgical Procedure: Operation Date: 03/15/24 08:20 Proposed Procedure Side Surgeon p Colonoscopy/Gastroscopy Beau Kaur MD Actual Procedure Side Surgeon p Colonoscopy/Gastroscopy Not Applicable Beau Kaur MD Pre-Op Diagnosis Post-Op Diagnosis EGD and colonoscopy Meds Allergies and Home Medications Allergies Allergy/AdvReac Type Severity Reaction Status Date / Time venom-honey bee Allergy Severe Anaphylaxsi Verified 03/15/24 07:11 [bee venom (honey bee)] s Home Medication Medication Instructions Recorded acetaminophen 325 mg tablet 650 mg (2 x 325 mg) PO Q6H PRN PRN 05/05/18 (Tylenol) #30 tabs esomeprazole magnesium 40 mg 40 mg PO DAILY@0730 ##30 05/29/18 capsule,delayed release (Nexium) ibuprofen 800 mg tablet 800 mg PO TID PRN 07/29/22 tadalafil 5 mg tablet (Cialis) 5 mg PO DAILY sexual activity #90 12/12/23 tabs Current Visit Medications: Current Medications Generic Name Dose Route Start Last Admin Trade Name Freq PRN Reason Stop Dose Admin Hyoscyamine Sulfate 0.125 mg 03/14/24 21:10 Hyoscyamine 0.125 Mg Sl/Oral/Chew SL 04/13/24 21:09 DIRECTED PRN Ringer's Solution 1,000 mls @ 80 mls/hr 03/15/24 06:00 03/15/24 07:26 IV 04/13/24 23:59 80 mls/hr INFUSION IAN Administration IV Miscellaneous Supplies 1 each 03/15/24 06:00 Iv Access IV 04/13/24 23:59 DIRECTED IAN Ondansetron HCl 4 mg 03/14/24 21:10 Ondansetron 4 Mg/2 Ml Vial IVP 04/13/24 21:09 Q4H PRN PRN Nausea / Vomiting Sodium Chloride 0 ml 03/15/24 06:00 Normal Saline Flush 10 Ml Syr IV 04/13/24 23:59 PRN PRN Sodium Chloride 0 ml 03/15/24 06:00 Normal Saline 10 Ml Vial IJ 04/13/24 23:59 DIRECTED PRN Sterile Water 0 ml 03/15/24 06:00 Water,Injection,Sterile 10 Ml Vial IJ 04/13/24 23:59 DIRECTED PRN PFSH Active Problems Active Problems: Problem Status Onset Code Encounter for screening colonoscopy Z12.11 Medical History Medical History Sensorineural hearing loss, bilateral Tinnitus, bilateral Tinnitus Prostate cancer Family history of prostate cancer Elevated PSA Skin lesion of scalp Right knee sprain Internal derangement of right knee GERD (gastroesophageal reflux disease) Cholelithiasis Biceps tendinitis of right shoulder Right rotator cuff tendinitis Fever and chills Garza's esophagus determined by biopsy EGD 2012,2013,2017 Acute appendicitis Surgical History Surgical History Hx of elbow surgery Right arm. 02/21/2019 EGD - MAC (04/02/20) 05/2018- Garza's EGD - IV Sedation (12/24/13) w/ bx Colonoscopy - IV Sedation (12/24/13) Appendectomy (05/04/18) Tobacco Smoking/Tobacco Use Status: Never Alcohol Alcohol Intake: current Alcohol intake frequency: a few times a month Alcohol type: beer Substance Use Substance use: Never Substance use type: does not use Vital Signs and Lab Results Vital Signs Most Recent Vital Signs in EMR: Most Recent Vital Signs Temp Pulse Resp BP Pulse Ox 36.6 C 67 16 127/95 H 99 03/15/24 07:18 03/15/24 07:18 03/15/24 07:18 03/15/24 07:18 03/15/24 07:18 Lab Results Blood Type / Crossmatch: No Data to Display Complete Blood Count: No Data to Display Complete Metabolic Panel: No Data to Display Liver Function Panel: No Data to Display Coagulation Panel: No Data to Display Cardiac Panel: No Data to Display Arterial Blood Gas: No Data to Display Venous Blood Gas: No Data to Display Pancreas Panel: No Data to Display Thyroid Panel: No Data to Display Infectious Disease: No Data to Display Blood Cultures: No Data to Display Toxicology Panel: No Data to Display Anesthesia Assessment and Plan Anesthesia History Personal History: No History of Anesthesia Complications Family History: No Family History of Anesthesia Complications Exercise Tolerance Exercise Tolerance: Metabolic Equivalents>4 Pertinent Negatives Pertinent Negatives: No Symptoms of GERD (Rx) Cardiac & Pulmonary Exam Cardiac Exam: Normal S1/S2 Heart Sounds Pulmonary Exam: Clear Bilateral Breath Sounds Implantable Cardiac Device Does patient have a Pacemaker or an ICD?: No Airway Exam Known Difficult Airway: No Mallampati Class: 2 Mouth Opening: Normal (> 3cm) Thyromental Distance: Greater than 3 cm Neck Range of Motion: Full ROM Neck Circumference: Normal Teeth Condition: Normal Dentition ASA Classification ASA Score: ASA 2 Emergency Case?: No NPO Status NPO Status: NPO Clears >2 hours, Solids >8 hours Anesthesia Plan Resuscitation Status: Full Code Anesthesia Technique: General Anesthesia Airway Planned: Natural Airway Monitors Used: Standard Monitors
[2024-03-15 08:22] VITALS: BMI 24.7
--- NOTE | 2024-03-15 08:36 | ESO_PTH ---
PATIENT: Lamont Jay LOC: [facility] U#:[id number] AGE/SX: 63/M ROOM: RE03/15/[address]: Beau Kaur MD : 1960 BED: DIS: 03/15/2024 SPEC #: [id number] RECD: 03/15/24 12:15 STATUS: [facility] #: [id number] LUTHER: 03/15/24 08:[address]: Beau Kaur DEPT: Surgical Specimen RECD BY: Lupe Lee ENTERED: 03/15/24 12:16 SP TYPE: Yovanao ANNI DR: Minor Baez Tissues: 1 - STOMACH BIOPSY 2 - STOMACH BIOPSY 3 - ESOPHAGUS BIOPSY 4 - ESOPHAGUS BIOPSY 5 - ESOPHAGUS BIOPSY 6 - ESOPHAGUS BIOPSY 7 - BIOPSY BOWEL Procedures: GROSS AND MICRO LEVEL 4 Comments: [id number]
[2024-03-15 09:14] VITALS: BP 123/87; PULSE 68; RESP 16; TEMP 36.5; O2SAT 96
--- NOTE | 2024-03-15 09:23 | W.ANESPOSTOP ---
Postoperative Evaluation Date, Time and Location Date Performed: 03/15/24 Time Performed: 09:23 Patient Location: Day Surgery Unit Vital Signs Most Recent Imported Vital Signs: Most Recent Vital Signs Temp Pulse Resp BP Pulse Ox 36.5 C 68 16 123/87 96 03/15/24 09:14 03/15/24 09:14 03/15/24 09:14 03/15/24 09:14 03/15/24 09:14 Pain Score Most Recent Pain Score: Most Recent Pain Score Pain Level 0 03/15/24 09:14 Assessment Mental Status: Awake (Alert & Oriented to Patient Baseline) Airway and Respiratory Function: Patent airway with normal (patient baseline) respiratory exam Cardiovascular Function: Hemodynamically Stable Hydration Status: Adequately Hydrated Nausea & Vomiting: No Nausea or Vomiting Pain: Pt. Denies Any Pain Peripheral Nerve Block: Patient did not receive a nerve block
[2024-03-15 09:24] VITALS: BP 122/88; PULSE 61; RESP 16; TEMP 36.6; O2SAT 98
== END 2024-03-15 10:08 | disposition home or self-care (01) ==
PROVIDERS: PCP Family Medicine; Visit Provider Surgery
PROC: (CPT 45380; principal; 2024-03-15 08:15)
DX: Z12.11 Encounter for screening for malignant neoplasm of colon (principal); D12.5 Benign neoplasm of sigmoid colon; K57.30 Diverticulosis of large intestine without perforation or abscess without bleeding; K22.70 Barrett's esophagus without dysplasia; K44.9 Diaphragmatic hernia without obstruction or gangrene; K31.89 Other diseases of stomach and duodenum
CPT/HCPCS: 45380; 43239; 88305; J2001; J2704

== ENCOUNTER 2024-04-18 13:08 | Outpatient (CLI) | payer OTHER, SELFPAY ==
[2024-04-19 17:32] LABS: PSA, Ultrasensitive <0.01 ng/mL (<= 4.5)
== END 2024-04-18 13:09 | disposition home or self-care (01) ==
LOC: LBO 13:09
PROVIDERS: PCP Family Medicine; Visit Provider Surgery
DX: C61 Malignant neoplasm of prostate (principal)
CPT/HCPCS: 36415; 84153

== ENCOUNTER 2024-07-10 17:10 | Outpatient (REF) | payer OTHER, SELFPAY ==
[2024-07-10 22:16] LABS: Abs Immature Grans 0.06 10^3/uL (0.0-0.06); Absolute Basophil Count 0.06 10^3/uL (0.0-0.2); Absolute Eosinophil Count 0.14 10^3/uL (0.0-0.7); Absolute Lymphocyte Count 1.87 10^3/uL (1.2-3.4); Absolute Monocyte Count 0.67 10^3/uL (0.1-0.8); Absolute Neutrophil Count 4.17 10^3/uL (1.2-6.7); Basophils % 0.9 %; HCT 47.1 % (40.0-50.0); HGB 16.4 g/dL (13.5-17.5); Immature Grans % 0.9 %; Lymphocytes % 26.8 %; MCH 31.5 pg (27.0-33.0); MCHC 34.8 % (32.0-36.0); MCV 91 fL (80-95); MPV 10.7 fL (8.0-11.0); Monocytes % 9.6 %; Neutrophils % 59.8 %; Platelet Count 310 10^3/uL (130-400); RDW 12.5 % (11.8-14.1); RDW-SD 41.1 fL; WBC 6.97 10^3/uL (4.4-10.8)
[2024-07-10 22:40] LABS: Hemoglobin A1C 5.2 % (<5.7)
[2024-07-10 22:53] LABS: ALT 30 U/L (16-63); AST 17 U/L (15-37); Albumin 3.8 g/dL (3.4-5.0); Alkaline Phosphatase 61 U/L (46-116); Anion Gap 7.6 mmol/L (3-11); BUN 19 mg/dL (7-18); Bilirubin, Total 1.54 mg/dL (0.2-1.0); CO2 28.4 mmol/L (21.0-32.0); CREATININE 1.1 mg/dL (0.70-1.30); Calcium 9.5 mg/dL (8.5-10.1); Chloride 104 mmol/L (98-107); Estimated GFR 75.43 (mL/min/1.73m2); Glucose 103 mg/dL (74-106); LDL CHOLESTEROL 117 mg/dL (<100); Sodium 140 mmol/L (136-145)
== END 2024-07-10 17:11 | disposition home or self-care (01) ==
LOC: NCHCN 17:10
PROVIDERS: PCP Family Medicine; Visit Provider Family Medicine
DX: Z00.00 Encounter for general adult medical examination without abnormal findings (principal); E78.5 Hyperlipidemia, unspecified
CPT/HCPCS: 80053; 83721; 83036; 85025

== ENCOUNTER 2024-10-04 09:39 | Outpatient (CLI) | payer OTHER, SELFPAY ==
[2024-10-05 18:39] LABS: PSA, Ultrasensitive <0.01 ng/mL (<= 4.5)
== END 2024-10-04 09:40 | disposition home or self-care (01) ==
LOC: LBO 09:40
PROVIDERS: PCP Family Medicine; Visit Provider Surgery
DX: C61 Malignant neoplasm of prostate (principal)
CPT/HCPCS: 36415; 84153

== ENCOUNTER 2025-04-15 10:55 | Outpatient (CLI) | payer OTHER, SELFPAY ==
[2025-04-18 12:36] LABS: PSA, Ultrasensitive 0.02 ng/mL (<= 4.5)
== END 2025-04-15 10:56 | disposition home or self-care (01) ==
LOC: LBO 10:56
PROVIDERS: PCP Family Medicine; Visit Provider Surgery
DX: C61 Malignant neoplasm of prostate (principal)
CPT/HCPCS: 36415; 84153

== ENCOUNTER 2025-07-22 16:55 | Outpatient (REF) | payer OTHER, SELFPAY ==
[2025-07-22 15:19] LABS: ALT 34 U/L (16-63); AST 18 U/L (15-37); Albumin 3.6 g/dL (3.4-5.0); Alkaline Phosphatase 57 U/L (46-116); Anion Gap 8.1 mmol/L (3-11); BUN 18 mg/dL (7-18); Bilirubin, Total 2.2 mg/dL (0.2-1.0); CO2 29.9 mmol/L (21.0-32.0); Calcium 9.4 mg/dL (8.5-10.1); Calculated LDL 146 mg/dL (<100); Chloride 103 mmol/L (98-107); Cholesterol 236 mg/dL (<200); Estimated GFR 95.37 (mL/min/1.73m2); Glucose 100 mg/dL (74-106); HDL Cholesterol 53 mg/dL (>or=40); Potassium 4.3 mmol/L (3.5-5.1); Sodium 141 mmol/L (136-145); Total Protein 6.8 g/dL (6.4-8.2); Triglyceride 188 mg/dL (<150)
== END 2025-07-22 16:56 | disposition home or self-care (01) ==
LOC: NCHCN 16:55
PROVIDERS: PCP Family Medicine; Visit Provider Family Medicine
DX: E78.5 Hyperlipidemia, unspecified (principal); Z00.00 Encounter for general adult medical examination without abnormal findings
CPT/HCPCS: 80053; 80061

== ENCOUNTER 2025-08-05 15:41 | Outpatient (REF) | payer OTHER, SELFPAY ==
[2025-08-05 15:23] LABS: ALT 31 U/L (16-63); AST 16 U/L (15-37); Albumin 3.9 g/dL (3.4-5.0); Alkaline Phosphatase 55 U/L (46-116); Bilirubin, Direct 0.2 mg/dL (0.0-0.2); Bilirubin, Total 1.6 mg/dL (0.2-1.0); Total Protein 7.1 g/dL (6.4-8.2)
== END 2025-08-05 15:42 | disposition home or self-care (01) ==
LOC: NCHCN 15:41
PROVIDERS: PCP Family Medicine; Visit Provider Family Medicine
DX: R17 Unspecified jaundice (principal)
CPT/HCPCS: 80076

== ENCOUNTER 2025-08-28 16:15 | Outpatient (REF) | payer MEDICARE, OTHER, SELFPAY ==
[2025-08-28 19:09] LABS: ALT 30 U/L (16-63); AST 14 U/L (15-37)
== END 2025-08-28 16:16 | disposition home or self-care (01) ==
LOC: NCHCN 16:15
PROVIDERS: PCP Family Medicine; Visit Provider Family Medicine
DX: E78.5 Hyperlipidemia, unspecified (principal)
CPT/HCPCS: 84450; 84460

== ENCOUNTER 2025-10-25 09:03 | Outpatient (CLI) | payer MEDICARE, SELFPAY | END 2025-10-25 09:04 | disposition home or self-care (01) | LOC: LBO 09:03 | PROVIDERS: PCP Family Medicine; Visit Provider Surgery | DX: C61 Malignant neoplasm of prostate (principal) | CPT/HCPCS: 36415; 84153 ==